=== PATIENT | female | born 1950 | race Two or more races ===

== ENCOUNTER 2016-07-01 12:29 | Inpatient (IN) | payer MEDICARE, OTHER ==
[~2016-07-01] VITALS: Ht 157.5 cm; Wt 136.5 kg
[2016-07-01] MEDS ORDERED: IV NORMAL SALINE 1000ML BAG 1,000 ML IV SCH ×2 (13:15→15:22)
[2016-07-01] MEDS ORDERED: ONDANSETRON PF 4 MG/2 ML VIAL. IV ONE (13:45)
[2016-07-01 13:50] LABS: BASO # 0.1 x10^3/uL (0.0-0.2); BASO % 1 % (0-3); EOS % 2 % (0-3); HEMOGLOBIN 11.3 g/dL (12.0-15.5); LYMPH # 1.6 x10^3/uL (1.0-4.8); LYMPH % 19 % (24-48); MEAN CORPUSCULAR HEMOGLOBIN 26 pg (25-35); MEAN CORPUSCULAR HGB CONC 31 g/dL (31-37); MEAN CORPUSCULAR VOLUME 84 fL (79-100); MONO % 6 % (0-9); NEUT % 72 % (31-73); PLATELET COUNT 218 x10^3/uL (140-400); RED BLOOD COUNT 4.42 x10^6/uL (3.50-5.40); RED CELL DISTRIBUTION WIDTH 21.7 % (11.5-14.5); WHITE BLOOD COUNT 8.7 x10^3/uL (4.0-11.0)
--- NOTE | 2016-07-01 13:58 | RAD ---
Indication shortness of breath. A single view of the chest was obtained. No prior imaging of the chest is available. There is generalized cardiomegaly. There is no gross congestive heart failure. A consolidated pneumonia is not seen. Significant pleural fluid is not present. There is no pneumothorax. The visualized bony structures appear grossly intact. IMPRESSION: Cardiomegaly. A focal or acute process in the chest is not seen
[2016-07-01 14:04] LABS: CALCIUM 9.4 mg/dL (8.5-10.1); CREATININE 0.8 mg/dL (0.6-1.0); POTASSIUM 4.4 mmol/L (3.5-5.1)
[2016-07-01] MEDS: FENTANYL PF 100 MCG/2 ML VIAL. IV PRN ×2 (14:06→16:29)
[2016-07-01 14:09] LABS: BILIRUBIN,URINE NEGATIVE (NEG); GLUCOSE,URINE 250 mg/dL (NEG); NITRITE,URINE NEGATIVE (NEG); PH,URINE 6.5; PROTEIN,URINE NEGATIVE (NEG-TRACE); UROBILINOGEN,URINE 0.2 mg/dL (0.2 mg/dL)
[2016-07-01 14:10] LABS: ALBUMIN 3.5 g/dL (3.4-5.0); TOTAL BILIRUBIN 0.3 mg/dL (0.2-1.0); TOTAL PROTEIN 6.9 g/dL (6.4-8.2)
--- NOTE | 2016-07-01 14:17 | PHYS DOC ---
Past Medical History Past Medical History: Diabetes-Type II, Hypertension, Other Additional Past Medical Histor: "rapid heartrate" Past Surgical History: Cholecystectomy, , Other Additional Past Surgical Histo: R hand frx repair Alcohol Use: Rarely Drug Use: None Adult General Chief Complaint Chief Complaint: BACK PAIN OR INJURY HPI HPI Patient is a 66 year old female who presents with complaint of back pain for one week. Patient states that she is I'm pain along the left side of her back which radiates into her left flank. The patient denies any injury. Patient was noted at triage to have significant hypoxia with minimal exertion, reporting an oxygen saturation in the mid to low 80s. The patient does admit to shortness of breath and swelling in her lower extremities. Patient rates pain currently as an 8 out of 10. Patient has not taken any medications to help with symptoms. Patient has history of hypertension and type 2 diabetes mellitus. Patient has not had any associated fevers, productive cough, or chest pain with her symptoms. Review of Systems Review of Systems Constitutional: Denies fever or chills [] Eyes: Denies change in visual acuity, redness, or eye pain [] HENT: Denies nasal congestion or sore throat [] Respiratory: Dyspnea on exertion [] Cardiovascular: Edema, denies chest pain [] GI: Denies abdominal pain, nausea, vomiting, bloody stools or diarrhea [] : Denies dysuria or hematuria [] Musculoskeletal: Back pain [] Integument: Denies rash or skin lesions [] Neurologic: Denies headache, focal weakness or sensory changes [] Current Medications Current Medications Current Medications Medications (Trade) Dose Ordered Sig/[place]elaide Start Time Stop Time Status Last Admin Dose Admin Fentanyl Citrate (Fentanyl 2ml Vial) 50 mcg PRN Q15MIN PRN 07/01/16 13:30 07/02/16 13:29 07/01/16 14:06 50 MCG Ondansetron HCl (Zofran) 4 mg 1X ONCE 07/01/16 13:45 07/01/16 13:46 DC 07/01/16 14:05 4 MG Sodium Chloride (Iv Sodium Chloride 0.9% 1000ml Bag) 1,000 ml @ 1,000 mls/hr Q1H 07/01/16 13:15 07/01/16 14:14 DC 07/01/16 13:27 1,000 MLS/HR Allergies Allergies Allergies Coded Allergies Type Severity Reaction Last Updated Verified No Known Drug Allergies 07/01/16 No Physical Exam Physical Exam Constitutional: Alert, obese, afebrile, appears in mild discomfort. [] HENT: Normocephalic, atraumatic, bilateral external ears normal, oropharynx moist, no oral exudates, nose normal. [] Eyes: PERRLA, EOMI, conjunctiva normal, no discharge. [] Neck: Normal range of motion, no tenderness, supple, no stridor. [] Cardiovascular:Heart rate regular rhythm, no murmur [] Lungs & Thorax: Mild to moderate restriction of air movement bilaterally, no wheezes, no rales [] Abdomen: Bowel sounds normal, soft, no tenderness, no masses, no pulsatile masses. [] Skin: Warm, dry, no erythema, no rash. [] Back: No tenderness, no CVA tenderness. [] Extremities: No tenderness, no cyanosis, no clubbing, ROM intact, 2+ pitting edema in the bilateral lower extremities. [] Neurologic: Alert and oriented X 3, normal motor function, normal sensory function, no focal deficits noted. [] Current Patient Data Vital Signs Vital Signs Date Time Temp Pulse Resp B/P Pulse Ox O2 Delivery O2 Flow Rate FiO2 07/01/16 14:06 24 98 Room Air 07/01/16 12:36 97.7 73 176/56 97.7 Lab Values Laboratory Tests Test 07/01/16 12:55 07/01/16 13:33 Urine Color Yellow Urine Clarity Clear Urine pH 6.5 Urine Specific [place] 1.010 Urine Protein Negativemg/dL (NEG-TRACE) Urine Glucose (UA) 250mg/dL (NEG) Urine Ketones (Stick) Negativemg/dL (NEG) Urine Blood Negative (NEG) Urine Nitrite Negative (NEG) Urine Bilirubin Negative (NEG) Urine Urobilinogen Dipstick 0.2mg/dL (0.2 mg/dL) Urine Leukocyte Esterase Negative (NEG) Urine RBC 0/HPF (0-2) Urine WBC Occ/HPF (0-4) Urine Squamous Epithelial Cells Occ/LPF Urine Bacteria 0/HPF (0-FEW) White Blood Count 8.7x10^3/uL (4.0-11.0) Red Blood Count 4.42x10^6/uL (3.50-5.40) Hemoglobin 11.3g/dL (12.0-15.5) L Hematocrit 37.0% (36.0-47.0) Mean Corpuscular Volume 84fL (79-100) Mean Corpuscular Hemoglobin 26pg (25-35) Mean Corpuscular Hemoglobin Concent 31g/dL (31-37) Red Cell Distribution Width 21.7% (11.5-14.5) H Platelet Count 218x10^3/uL (140-400) Neutrophils (%) (Auto) 72% (31-73) Lymphocytes (%) (Auto) 19% (24-48) L Monocytes (%) (Auto) 6% (0-9) Eosinophils (%) (Auto) 2% (0-3) Basophils (%) (Auto) 1% (0-3) Neutrophils # (Auto) 6.3x10^3uL (1.8-7.7) Lymphocytes # (Auto) 1.6x10^3/uL (1.0-4.8) Monocytes # (Auto) 0.5x10^3/uL (0.0-1.1) Eosinophils # (Auto) 0.2x10^3/uL (0.0-0.7) Basophils # (Auto) 0.1x10^3/uL (0.0-0.2) Sodium Level 145mmol/L (136-145) Potassium Level 4.4mmol/L (3.5-5.1) Chloride Level 104mmol/L (98-107) Carbon Dioxide Level 31mmol/L (21-32) Anion Gap 10 (6-14) Blood Urea Nitrogen 21mg/dL (7-20) H Creatinine 0.8mg/dL (0.6-1.0) Estimated GFR (Cockcroft-Gault) 72.0 BUN/Creatinine Ratio 26 (6-20) H Glucose Level 166mg/dL (70-99) H Lactic Acid Level 1.7mmol/L (0.4-2.0) Calcium Level 9.4mg/dL (8.5-10.1) Total Bilirubin 0.3mg/dL (0.2-1.0) Aspartate Amino Transferase (AST) 25U/L (15-37) Alanine Aminotransferase (ALT) 28U/L (14-59) Alkaline Phosphatase 102U/L (46-116) Creatine Kinase 104U/L (26-192) Creatine Kinase MB (Mass) 1.1ng/mL (0.0-3.6) Creatine Kinase MB Relative Index 1.1% (0-4) Troponin I Quantitative < 0.017ng/mL (0.000-0.055) IM-Lvc-G-Type Natriuretic Peptide 142pg/mL (0-124) H Total Protein 6.9g/dL (6.4-8.2) Albumin 3.5g/dL (3.4-5.0) Albumin/Globulin Ratio 1.0 (1.0-1.7) Influenza Type A Antigen Negative (NEGATIVE) Influenza Type B Antigen Negative (NEGATIVE) Laboratory Tests 07/01/16 13:33 Laboratory Tests 07/01/16 13:33 EKG EKG Interpreted by me: Heart rate 70, sinus rhythm, normal intervals, normal axis, no acute ST/T-wave abnormalities present [] Radiology/Procedures Radiology/Procedures [facility] [address], [place] [id number] IMAGING REPORT Signed PATIENT: CAYETANO MAN ACCOUNT: [id number] : 1950 LOCATION: ER AGE: 66 SEX: F EXAM STATUS: REG ER ORD. PHYSICIAN: REINIER FITZPATRICK MD REASON: shortness of breath PROCEDURE: PORTABLE CHEST 1V Indication shortness of breath. A single view of the chest was obtained. No prior imaging of the chest is available. There is generalized cardiomegaly. There is no gross congestive heart failure. A consolidated pneumonia is not seen. Significant pleural fluid is not present. There is no pneumothorax. The visualized bony structures appear grossly intact. IMPRESSION: Cardiomegaly. A focal or acute process in the chest is not seen DICTATED and SIGNED BY: CEDRIC FLOYD MD DATE: 07/01/16 1736 CC: REINIER FITZPATRICK MD; UNKNOWN PCP NAME ~ [] Course & Med Decision Making Course & Med Decision Making Pertinent Labs and Imaging studies reviewed. (See chart for details) Patient was continued on supplemental oxygen with stabilization of oxygen levels to 93-95%. Patient's x-ray did not reveal evidence of pneumonia and patient's cardiac enzymes were unremarkable. The patient's symptoms appear to be consistent with exacerbation of asthma and also partially due to body habitus. The patient will be treated with medications to help with her lower lumbar strain as well as medications for asthma exacerbation. Patient admitted to Dr. yT. A consult was placed to Dr. Chaudhry of pulmonology to follow patient in hospital. Dragon Disclaimer Dragon Disclaimer This electronic medical record was generated, in whole or in part, using a voice recognition dictation system. Departure Departure Impression: Primary Impression: Dyspnea on exertion Additional Impressions: Hypoxia Asthma exacerbation Type 2 diabetes mellitus Morbid obesity Disposition: ADMITTED INPATIENT Admitting Physician: Tye Ty Condition: STABLE Referrals: UNKNOWN PCP NAME (PCP) Problem Qualifiers Additional Impressions: Type 2 diabetes mellitus Diabetes mellitus complication status: without complication Diabetes mellitus fpc insulin use: unspecified fpc insulin use status Qualified Code: E11.9 - Type 2 diabetes mellitus without complications Morbid obesity Obesity type: unspecified obesity type Qualified Code: E66.01 - Morbid ( severe) obesity due to excess calories REINIER FITZPATRICK MD Jul 01, 2016 14:17
[2016-07-01 14:18] LABS: CKMB INDEX 1.1 % (0-4); CKMB MASS 1.1 ng/mL (0.0-3.6)
[2016-07-01 14:23] LABS: BACTERIA,URINE 0 /HPF (0-FEW); RBC,URINE 0 /HPF (0-2); SQUAMOUS EPITHELIAL CELL,UR OCC /LPF; WBC,URINE OCC /HPF (0-4)
[2016-07-01 14:25] LABS: OBC FLU VALID
--- NOTE | 2016-07-01 14:34 | EKG ---
[facility] [address] [place] [address] Test Date: 2016-07-01 Test Time: 13:05:49 Pat Name: CAYETANO MAN Department: Room: Gender: F Financial Director: : 1950 Requested By: REINIER FITZPATRICK Order Number: [id number] Reading MD: Dorota Fritz Measurements Intervals [place] Rate: 70 P: 0 AK: 152 QRS: 24 QRSD: 86 T: 9 QT: 410 QTc: 446 Interpretive Statements SINUS RHYTHM NORMAL ECG RI6.01 No previous ECG available for comparison Electronically Signed On 07-03-2016 18:57:12 CDT by Dorota Fritz
[2016-07-01] MEDS ORDERED: ACETAMINOPHEN 325 MG TABLET. PO PRN ×2 (15:30→20:30)
[2016-07-01] MEDS ORDERED: ONDANSETRON PF 4 MG/2 ML VIAL. IV PRN ×3 (15:30→20:30)
[2016-07-01] MEDS: methylPREDNISolone SOD SUCC PF 40 MG/ML VIAL. IV SCH (16:28)
[2016-07-01] MEDS ORDERED: CYCLOBENZAPRINE 10 MG TABLET. PO PRN ×2 (16:30→20:30)
[2016-07-01 17:00] VITALS: BP 148/77
[2016-07-01] MEDS ORDERED: METO100T2 PO (18:12)
[2016-07-01] MEDS ORDERED: NAPR500T3 PO (18:12)
[2016-07-01] MEDS ORDERED: LISI-334 PO (18:12)
[2016-07-01] MEDS ORDERED: METF10002 PO (18:12)
[2016-07-01] MEDS ORDERED: SIMV20TA3 PO (18:12)
[2016-07-01] MEDS ORDERED: GABA600T2 PO (18:12)
[2016-07-01] MEDS ORDERED: HYDR25TA9 PO (18:13)
[2016-07-01] MEDS ORDERED: ASPI81TA2 PO (18:13)
[2016-07-01 18:17] VITALS: BP 148/77
--- NOTE | 2016-07-01 18:27 | ACF ---
Admission Forms Criteria ASTHMA Clinical Indications for Admission to Inpatient Care (Place 'X' for any and all applicable criteria): Admission is indicated for ANY ONE of the following (1)(2)(3)(4)(5): [ ]I. Absent or markedly diminished breath sounds (silent chest) [ ]II. Oxygen saturation < 92% [ ]III. PaCO2 = / > 42 mm Hg (5.6 kPa) [ ]IV. Peak expiratory flow rate < 40% of predicted or personal best after treatment. [ ]V. Peak expiratory flow rate < 33% of predicted or personal before after treatment [ ]. Change in mental status [ ]VII. Ventilatory support required [ ]VIII. PaO2 < 60 mm Hg (8.0 kPa) [ ]IX. Cyanosis [ ]X. Cardiac dysrhythmia (e.g., bradycardia) [ ]XI. Hemodynamic instability [ ]XII. Radiographic evidence of complication requiring inpatient treatment (e.g., pneumonia, pneumothorax) [X]XIII. Inpatient admission required rather than observation care (also use Asthma: Observation Care guideline as appropriate) because of ANY ONE of the following: [ ]a) Respiratory finding that is severe or persistent (eg, dyspnea, tachypnea, accessory muscle use) [ ]b) Airflow measurements less than 60% of predicted or personal best that persist (e.g., over 24 hours) or worsen despite treatments [X]c) Supplemental oxygen or respiratory treatments for over 24 hours that are performable only in acute inpatient setting [X]d) Other condition, treatment or monitoring requiring inpatient admission. Extended stay beyond goal length of stay may be needed for (26)(27)(28): [ ]a) Severe respiratory failure (23) (29) (30) [ ]b) Secondary causes and complications (25) [ ]c) Status asthmaticus [ ]d) Chronic obstructive asthma [ ]e) Older patients (29) [ ]f) Slow resolution [ ]g) Clinically significant exacerbation of comorbidities (eg, elie. heart failure, atrial fibrillation) The original [employer] content created by [employer] has been revised. The portions of the content which have been revised are identified through the use of italic text or in bold, and [employer] has neither reviewed nor approved the modified material. All other unmodified content is copyright [employer] Please see references footnoted in the original [facility] edition 2016 Admission Criteria Met?: Yes NAVEEN GIANG Jul 01, 2016 18:27
[2016-07-01 19:05] VITALS: BP 146/69
[2016-07-01] MEDS: IPRATRPIUM/ALBUTEROL 0.5/2.5MG 3 ML NEBU. NEB SCH ×2 (20:00→20:30)
[2016-07-01] MEDS ORDERED: INSU100V13 SQ (20:05)
[2016-07-01] MEDS ORDERED: INSU100C4 SQ (20:05)
[2016-07-01] MEDS ORDERED: PROAIR HFA8.5 GM INH (20:06)
[2016-07-01] MEDS ORDERED: ALBUTEROL SULFATE 2.5 MG/3 ML NEBU. NEB PRN ×2 (20:15→20:45)
[2016-07-01] MEDS ORDERED: HYDROCODONE/APAP 5/325MG TABLET. PO PRN (20:15)
[2016-07-01] MEDS ORDERED: hydrALAZINE 20 MG/ML VIAL. IVP PRN (20:15)
[2016-07-01] MEDS ORDERED: MORPHINE SULFATE 2 MG/ML DISP.SYRIN. IV PRN (20:30)
[2016-07-01] MEDS ORDERED: DEXTROSE 50% 25 GM / 50ML DISP.SYRIN. IV PRN (20:30)
[2016-07-01] MEDS ORDERED: NON FORMULARY ITEM (Albuterol Sulfate (Proair Hfa Inhaler) 2 PUFF) INH PRN (20:30)
[2016-07-01] MEDS ORDERED: INSULIN DETEMIR 300 UNITS/3 ML INSULN.PEN. SQ SCH ×2 (21:00)
[2016-07-01] MEDS: SIMVASTATIN 20 MG TABLET PO SCH (21:25)
[2016-07-01] MEDS: LISINOPRIL 20 MG TABLET PO SCH (21:25)
[2016-07-01] MEDS: GABAPENTIN 300 MG CAPSULE. PO SCH (21:25)
[2016-07-01] MEDS: METOPROLOL TART IMMED RELEASE 50 MG TABLET. PO SCH (21:25)
--- NOTE | 2016-07-01 21:53 | HP ---
ADMIT DATE: 07/01/2016 CHIEF COMPLAINT: Left-sided back pain. HISTORY OF PRESENT ILLNESS: A 66-year-old female patient with history of several comorbid conditions such as obesity, type 2 diabetes mellitus and hypertension, presented to the ER with complaints for nearly 1 week to 10 days of history of left-sided flank pain, which radiates to the front. The patient complains it as a tightness. At the time of arrival to the ER, her pain is 8/10 which has been getting better with some pain medications. She is reported to do have some low saturations running in mid low 80s in the ER and also the patient complain some shortness of breath. She is morbidly obese. She usually walks with cane and as of the family member, she is having chronic lower extremity swelling. The patient denies any urinary tract infection or symptoms of UTI, no fever, no cough, no chest pain. PAST MEDICAL HISTORY: Type 2 diabetes mellitus and hypertension. PAST SURGICAL HISTORY: Cholecystectomy, , right hand fracture repair. PERSONAL HISTORY: No smoking, no alcohol, no drug abuse. FAMILY HISTORY: Family history of diabetes. REVIEW OF SYSTEMS: Please see my electronic H and P. PHYSICAL EXAMINATION: Please see my electronic H and P. LABORATORY DATA: CBC: WBC 8.7, hemoglobin at 11.3, MCV 84, platelets 218. Chemistry: Sodium 145, potassium 4.4, chloride is 31, gap is 10, BUN and creatinine ____, troponin is less than 0.01. Urine: Protein negative, blood negative, nitrites negative, leukocyte esterase negative. Serology: Influenza A and B negative. IMAGING STUDIES: Chest x-ray, cardiomegaly. ASSESSMENT AND PLAN: 1. Acute low back pain, possible muscle spasm. 2. Hypertension, not controlled. 3. Type 2 diabetes mellitus with mild hyperglycemia. 4. Lower extremity swelling, chronic. 5. Hypoxia. 6. Possible obesity hypoventilation. 7. Morbid obesity, BMI 54. PLAN: 1. The patient has been admitted for pain control and currently she is on fentanyl. I will change to morphine 2 mg every [address] Rosenthal. 3. hypoxia. I think it could be due to hypoventilation and intractable pain and chest x-ray did not show anything. I will ask Dr. Chaudhry to see her and evaluate her until then, we will treat her with periodic nebulizations and ER started on Solu-Medrol, continue until the patient seen by Pulmonology. 4. Blood pressure is not controlled. I will continue home medications with p.r.n. hydralazine. 5. Sliding scale insulin, also I will order hemoglobin A1c. 6. DVT prophylaxis. 7. Monitor electrolytes. 8. Plan explained to the patient's son at bedside. HUBERT KIDD MD DR: TAMMY/philip JOB#: [id number] / [id number] CHAR
[2016-07-01 23:06] VITALS: BP 122/57
[2016-07-02] MEDS: methylPREDNISolone SOD SUCC PF 40 MG/ML VIAL. IV SCH ×5 (00:46→23:52)
[2016-07-02 03:28] VITALS: BP 106/62
[2016-07-02 04:33] LABS: BASO % 0 % (0-3); EOS % 0 % (0-3); HEMATOCRIT 37.2 % (36.0-47.0); HEMOGLOBIN 11.1 g/dL (12.0-15.5); LYMPH # 0.6 x10^3/uL (1.0-4.8); LYMPH % 6 % (24-48); MEAN CORPUSCULAR HEMOGLOBIN 26 pg (25-35); MEAN CORPUSCULAR HGB CONC 30 g/dL (31-37); MEAN CORPUSCULAR VOLUME 86 fL (79-100); MONO % 1 % (0-9); NEUT % 93 % (31-73); PLATELET COUNT 185 x10^3/uL (140-400); RED BLOOD COUNT 4.31 x10^6/uL (3.50-5.40); RED CELL DISTRIBUTION WIDTH 21.9 % (11.5-14.5); WHITE BLOOD COUNT 9.4 x10^3/uL (4.0-11.0)
[2016-07-02 04:43] LABS: CALCIUM 8.7 mg/dL (8.5-10.1); CREATININE 0.9 mg/dL (0.6-1.0); GFR 62.8; POTASSIUM 5.6 mmol/L (3.5-5.1)
[2016-07-02 05:29] LABS: ANISOCYTOSIS MOD; HYPOCHROMIA SLIGHT; PLT ESTIMATE ADEQUATE (ADEQUATE)
[2016-07-02 07:00] VITALS: BP 109/44
[2016-07-02] MEDS: IPRATRPIUM/ALBUTEROL 0.5/2.5MG 3 ML NEBU. NEB SCH ×4 (07:24→20:06)
[2016-07-02] MEDS ORDERED: INSULIN ASPART 300 UNITS/3 ML INSULN.PEN SQ SCH ×2 (07:30→08:00)
--- NOTE | 2016-07-02 07:36 | PDOC1 ---
History and Physical Date of Admission Date of Admission 07/01/16 Current Problem List Problem List Problems Medical Problems: (1) Asthma exacerbation Status: Acute (2) Dyspnea Status: Acute (3) Dyspnea on exertion Status: Acute (4) Hypoxia Status: Acute (5) Hypoxia Status: Acute (6) Morbid obesity Status: Acute (7) Type 2 diabetes mellitus Status: Acute Current Medications Current Medications Current Medications Medications (Trade) Dose Ordered Sig/[place] Start Time Stop Time Status Last Admin Dose Admin Acetaminophen (Tylenol) 650 mg PRN Q6HRS PRN 07/01/16 20:30 Acetaminophen/ Hydrocodone Bitart (Lortab 5/325) 1 tab PRN Q6HRS PRN 07/01/16 20:15 Albuterol Sulfate (Ventolin Neb Soln) 2.5 mg PRN Q4HRS PRN 07/01/16 20:45 Albuterol/ Ipratropium (Duoneb) 3 ml RTQID 07/01/16 16:00 07/02/16 15:59 07/02/16 07:24 3 ML Aspirin (Children'S Aspirin) 81 mg DAILY 07/02/16 09:00 Cyclobenzaprine HCl (Flexeril) 10 mg PRN Q6HRS PRN 07/01/16 20:30 Dextrose (Dextrose 50%-Water Syringe) 12.5 gm PRN Q15MIN PRN 07/01/16 20:30 Fentanyl Citrate (Fentanyl 2ml Vial) 50 mcg PRN Q15MIN PRN 07/01/16 13:30 07/01/16 20:27 DC 07/01/16 16:29 50 MCG Gabapentin (Neurontin) 600 mg TID 07/01/16 21:00 07/01/16 21:25 600 MG Hydralazine HCl (Apresoline) 10 mg PRN Q4HRS PRN 07/01/16 20:15 Insulin Aspart (Novolog) 0-9 UNITS TIDWMEALS 07/02/16 08:00 Insulin Detemir (Levemir) 110 units QHS 07/01/16 21:00 07/01/16 21:30 110 UNITS Lisinopril (Prinivil) 20 mg BID 07/01/16 21:00 07/01/16 21:25 20 MG Metformin HCl (Glucophage) 1,000 mg BIDWMEALS 07/02/16 08:00 Methylprednisolone Sodium Succinate (Solu-Medrol 40mg Vial) 40 mg Q6HRS 07/01/16 15:33 07/02/16 06:00 40 MG Metoprolol Tartrate (Lopressor) 100 mg BID 07/01/16 21:00 07/01/16 21:25 100 MG Morphine Sulfate 2 mg PRN Q2HR PRN 07/01/16 20:30 Non-Formulary Medication 2 puff PRN Q4-6HRS PRN 07/01/16 20:30 07/01/16 20:33 DC Ondansetron HCl (Zofran) 4 mg PRN Q8HRS PRN 07/01/16 20:30 Ondansetron HCl 4 mg 4 mg PRN Q8HRS PRN 07/01/16 15:30 07/01/16 20:18 DC Simvastatin (Zocor) 20 mg QHS 07/01/16 21:00 07/01/16 21:25 20 MG Sodium Chloride (Iv Sodium Chloride 0.9% 1000ml Bag) 1,000 ml @ 100 mls/hr Q10H 07/01/16 15:22 07/01/16 20:33 DC 07/01/16 18:50 100 MLS/HR Allergies Allergies Allergies Coded Allergies Type Severity Reaction Last Updated Verified No Known Drug Allergies 07/01/16 No ROS Review of System CONSTITUTIONAL: No fever or chills EYES: No recent changes SKIN: No rash or itching CARDIOVASCULAR: No chest pain, syncope, palpitations, or edema RESPIRATORY: No SOB or cough GASTROINTESTINAL: abdominal pain NEUROLOGICAL: No headaches or weakness ENDOCRINE: No cold or heat intolerance GENITOURINARY: No urgency or frequency of urination MUSCULOSKELETAL: No back pain or joint pain LYMPHATICS: No enlarged lymph nodes PSYCHIATRIC: No anxiety or depression Physical Exam Physical Exam GEN.: No apparent distress. Alert and oriented. obese HEENT: Head is normocephalic, atraumatic NECK: Supple. LUNGS: Clear to auscultation. HEART: RRR, S1, S2 present. Peripheral pulses intact ABDOMEN: Soft, nontender. Positive bowel sounds. EXTREMITIES: edema NEUROLOGIC: Normal speech, normal tone PSYCHIATRIC: Normal affect, normal mood. SKIN: Vitals Vitals Vital Signs Date Time Temp Pulse Resp B/P Pulse Ox O2 Delivery O2 Flow Rate FiO2 07/02/16 07:26 98 Nasal Cannula 2.0 07/02/16 03:28 97.8 71 18 106/62 97.8 Labs Labs Laboratory Tests Test 07/01/16 12:55 07/01/16 13:33 07/01/16 17:34 07/01/16 20:56 Urine Color Yellow Urine Clarity Clear Urine pH 6.5 Urine Specific [place] 1.010 Urine Protein Negativemg/dL (NEG-TRACE) Urine Glucose (UA) 250mg/dL (NEG) Urine Ketones (Stick) Negativemg/dL (NEG) Urine Blood Negative (NEG) Urine Nitrite Negative (NEG) Urine Bilirubin Negative (NEG) Urine Urobilinogen Dipstick 0.2mg/dL (0.2 mg/dL) Urine Leukocyte Esterase Negative (NEG) Urine RBC 0/HPF (0-2) Urine WBC Occ/HPF (0-4) Urine Squamous Epithelial Cells Occ/LPF Urine Bacteria 0/HPF (0-FEW) White Blood Count 8.7x10^3/uL (4.0-11.0) Red Blood Count 4.42x10^6/uL (3.50-5.40) Hemoglobin 11.3g/dL (12.0-15.5) Hematocrit 37.0% (36.0-47.0) Mean Corpuscular Volume 84fL (79-100) Mean Corpuscular Hemoglobin 26pg (25-35) Mean Corpuscular Hemoglobin Concent 31g/dL (31-37) Red Cell Distribution Width 21.7% (11.5-14.5) Platelet Count 218x10^3/uL (140-400) Neutrophils (%) (Auto) 72% (31-73) Lymphocytes (%) (Auto) 19% (24-48) Monocytes (%) (Auto) 6% (0-9) Eosinophils (%) (Auto) 2% (0-3) Basophils (%) (Auto) 1% (0-3) Neutrophils # (Auto) 6.3x10^3uL (1.8-7.7) Lymphocytes # (Auto) 1.6x10^3/uL (1.0-4.8) Monocytes # (Auto) 0.5x10^3/uL (0.0-1.1) Eosinophils # (Auto) 0.2x10^3/uL (0.0-0.7) Basophils # (Auto) 0.1x10^3/uL (0.0-0.2) Sodium Level 145mmol/L (136-145) Potassium Level 4.4mmol/L (3.5-5.1) Chloride Level 104mmol/L (98-107) Carbon Dioxide Level 31mmol/L (21-32) Anion Gap 10 (6-14) Blood Urea Nitrogen 21mg/dL (7-20) Creatinine 0.8mg/dL (0.6-1.0) Estimated GFR (Cockcroft-Gault) 72.0 BUN/Creatinine Ratio 26 (6-20) Glucose Level 166mg/dL (70-99) Lactic Acid Level 1.7mmol/L (0.4-2.0) Calcium Level 9.4mg/dL (8.5-10.1) Total Bilirubin 0.3mg/dL (0.2-1.0) Aspartate Amino Transf (AST/SGOT) 25U/L (15-37) Alanine Aminotransferase (ALT/SGPT) 28U/L (14-59) Alkaline Phosphatase 102U/L (46-116) Creatine Kinase 104U/L (26-192) Creatine Kinase MB (Mass) 1.1ng/mL (0.0-3.6) Creatine Kinase MB Relative Index 1.1% (0-4) Troponin I Quantitative < 0.017ng/mL (0.000-0.055) GM-Xmi-H-Type Natriuretic Peptide 142pg/mL (0-124) Total Protein 6.9g/dL (6.4-8.2) Albumin 3.5g/dL (3.4-5.0) Albumin/Globulin Ratio 1.0 (1.0-1.7) Influenza Type A Antigen Negative (NEGATIVE) Influenza Type B Antigen Negative (NEGATIVE) Glucose (Fingerstick) 122mg/dL (70-99) 261mg/dL (70-99) Test 07/02/16 04:15 White Blood Count 9.4x10^3/uL (4.0-11.0) Red Blood Count 4.31x10^6/uL (3.50-5.40) Hemoglobin 11.1g/dL (12.0-15.5) Hematocrit 37.2% (36.0-47.0) Mean Corpuscular Volume 86fL (79-100) Mean Corpuscular Hemoglobin 26pg (25-35) Mean Corpuscular Hemoglobin Concent 30g/dL (31-37) Red Cell Distribution Width 21.9% (11.5-14.5) Platelet Count 185x10^3/uL (140-400) Neutrophils (%) (Auto) 93% (31-73) Lymphocytes (%) (Auto) 6% (24-48) Monocytes (%) (Auto) 1% (0-9) Eosinophils (%) (Auto) 0% (0-3) Basophils (%) (Auto) 0% (0-3) Neutrophils # (Auto) 8.8x10^3uL (1.8-7.7) Lymphocytes # (Auto) 0.6x10^3/uL (1.0-4.8) Monocytes # (Auto) 0.1x10^3/uL (0.0-1.1) Eosinophils # (Auto) 0.0x10^3/uL (0.0-0.7) Basophils # (Auto) 0.0x10^3/uL (0.0-0.2) Segmented Neutrophils % 94% (35-66) Band Neutrophils % 1% (0-9) Lymphocytes % 5% (24-48) Platelet Estimate Adequate (ADEQUATE) Hypochromasia Slight Anisocytosis Mod Sodium Level 140mmol/L (136-145) Potassium Level 5.6mmol/L (3.5-5.1) Chloride Level 102mmol/L (98-107) Carbon Dioxide Level 29mmol/L (21-32) Anion Gap 9 (6-14) Blood Urea Nitrogen 27mg/dL (7-20) Creatinine 0.9mg/dL (0.6-1.0) Estimated GFR (Cockcroft-Gault) 62.8 Glucose Level 293mg/dL (70-99) Calcium Level 8.7mg/dL (8.5-10.1) Laboratory Tests Test 07/01/16 12:55 07/01/16 13:33 07/01/16 17:34 07/01/16 20:56 Urine Color Yellow Urine Clarity Clear Urine pH 6.5 Urine Specific [place] 1.010 Urine Protein Negativemg/dL (NEG-TRACE) Urine Glucose (UA) 250mg/dL (NEG) Urine Ketones (Stick) Negativemg/dL (NEG) Urine Blood Negative (NEG) Urine Nitrite Negative (NEG) Urine Bilirubin Negative (NEG) Urine Urobilinogen Dipstick 0.2mg/dL (0.2 mg/dL) Urine Leukocyte Esterase Negative (NEG) Urine RBC 0/HPF (0-2) Urine WBC Occ/HPF (0-4) Urine Squamous Epithelial Cells Occ/LPF Urine Bacteria 0/HPF (0-FEW) White Blood Count 8.7x10^3/uL (4.0-11.0) Red Blood Count 4.42x10^6/uL (3.50-5.40) Hemoglobin 11.3g/dL (12.0-15.5) Hematocrit 37.0% (36.0-47.0) Mean Corpuscular Volume 84fL (79-100) Mean Corpuscular Hemoglobin 26pg (25-35) Mean Corpuscular Hemoglobin Concent 31g/dL (31-37) Red Cell Distribution Width 21.7% (11.5-14.5) Platelet Count 218x10^3/uL (140-400) Neutrophils (%) (Auto) 72% (31-73) Lymphocytes (%) (Auto) 19% (24-48) Monocytes (%) (Auto) 6% (0-9) Eosinophils (%) (Auto) 2% (0-3) Basophils (%) (Auto) 1% (0-3) Neutrophils # (Auto) 6.3x10^3uL (1.8-7.7) Lymphocytes # (Auto) 1.6x10^3/uL (1.0-4.8) Monocytes # (Auto) 0.5x10^3/uL (0.0-1.1) Eosinophils # (Auto) 0.2x10^3/uL (0.0-0.7) Basophils # (Auto) 0.1x10^3/uL (0.0-0.2) Sodium Level 145mmol/L (136-145) Potassium Level 4.4mmol/L (3.5-5.1) Chloride Level 104mmol/L (98-107) Carbon Dioxide Level 31mmol/L (21-32) Anion Gap 10 (6-14) Blood Urea Nitrogen 21mg/dL (7-20) Creatinine 0.8mg/dL (0.6-1.0) Estimated GFR (Cockcroft-Gault) 72.0 BUN/Creatinine Ratio 26 (6-20) Glucose Level 166mg/dL (70-99) Lactic Acid Level 1.7mmol/L (0.4-2.0) Calcium Level 9.4mg/dL (8.5-10.1) Total Bilirubin 0.3mg/dL (0.2-1.0) Aspartate Amino Transf (AST/SGOT) 25U/L (15-37) Alanine Aminotransferase (ALT/SGPT) 28U/L (14-59) Alkaline Phosphatase 102U/L (46-116) Creatine Kinase 104U/L (26-192) Creatine Kinase MB (Mass) 1.1ng/mL (0.0-3.6) Creatine Kinase MB Relative Index 1.1% (0-4) Troponin I Quantitative < 0.017ng/mL (0.000-0.055) KT-Zdj-X-Type Natriuretic Peptide 142pg/mL (0-124) Total Protein 6.9g/dL (6.4-8.2) Albumin 3.5g/dL (3.4-5.0) Albumin/Globulin Ratio 1.0 (1.0-1.7) Influenza Type A Antigen Negative (NEGATIVE) Influenza Type B Antigen Negative (NEGATIVE) Glucose (Fingerstick) 122mg/dL (70-99) 261mg/dL (70-99) Test 07/02/16 04:15 White Blood Count 9.4x10^3/uL (4.0-11.0) Red Blood Count 4.31x10^6/uL (3.50-5.40) Hemoglobin 11.1g/dL (12.0-15.5) Hematocrit 37.2% (36.0-47.0) Mean Corpuscular Volume 86fL (79-100) Mean Corpuscular Hemoglobin 26pg (25-35) Mean Corpuscular Hemoglobin Concent 30g/dL (31-37) Red Cell Distribution Width 21.9% (11.5-14.5) Platelet Count 185x10^3/uL (140-400) Neutrophils (%) (Auto) 93% (31-73) Lymphocytes (%) (Auto) 6% (24-48) Monocytes (%) (Auto) 1% (0-9) Eosinophils (%) (Auto) 0% (0-3) Basophils (%) (Auto) 0% (0-3) Neutrophils # (Auto) 8.8x10^3uL (1.8-7.7) Lymphocytes # (Auto) 0.6x10^3/uL (1.0-4.8) Monocytes # (Auto) 0.1x10^3/uL (0.0-1.1) Eosinophils # (Auto) 0.0x10^3/uL (0.0-0.7) Basophils # (Auto) 0.0x10^3/uL (0.0-0.2) Segmented Neutrophils % 94% (35-66) Band Neutrophils % 1% (0-9) Lymphocytes % 5% (24-48) Platelet Estimate Adequate (ADEQUATE) Hypochromasia Slight Anisocytosis Mod Sodium Level 140mmol/L (136-145) Potassium Level 5.6mmol/L (3.5-5.1) Chloride Level 102mmol/L (98-107) Carbon Dioxide Level 29mmol/L (21-32) Anion Gap 9 (6-14) Blood Urea Nitrogen 27mg/dL (7-20) Creatinine 0.9mg/dL (0.6-1.0) Estimated GFR (Cockcroft-Gault) 62.8 Glucose Level 293mg/dL (70-99) Calcium Level 8.7mg/dL (8.5-10.1) VTE Prophylaxis Ordered VTE Prophylaxis Devices: No VTE Pharmacological Prophylaxi: Yes HUBERT KIDD MD Jul 02, 2016 07:36
[2016-07-02] MEDS ORDERED: GABAPENTIN 300 MG CAPSULE. PO ONE (08:04)
[2016-07-02] MEDS: GABAPENTIN 300 MG CAPSULE. PO SCH ×3 (08:23→22:12)
[2016-07-02] MEDS: METOPROLOL TART IMMED RELEASE 50 MG TABLET. PO SCH ×2 (08:24→22:11)
[2016-07-02] MEDS: ASPIRIN CHEWABLE 81 MG TABLET. PO SCH (08:26)
[2016-07-02] MEDS: METFORMIN 1,000 MG TABLET PO SCH ×2 (08:26→17:02)
[2016-07-02] MEDS: LISINOPRIL 20 MG TABLET PO SCH ×2 (08:26→22:12)
[2016-07-02] MEDS: INSULIN ASPART 300 UNITS/3 ML INSULN.PEN SQ SCH ×5 (08:41→17:09)
[2016-07-02] MEDS ORDERED: ENOXAPARIN 40 MG/0.4 ML SYRINGE. SQ SCH (09:00)
[2016-07-02 11:00] VITALS: BP 141/68
--- NOTE | 2016-07-02 11:35 | PDOC ---
PROGRESS NOTES Chief Complaint Chief Complaint [error] LIN MYERS MD Jul 02, 2016 11:35
[2016-07-02] MEDS ORDERED: methylPREDNISolone ACETATE 40 MG/ML VIAL. INJ ONE (12:15)
[2016-07-02] MEDS ORDERED: BUPIVACAINE MPF 0.25% 10 ML VIAL. IJ ONE (12:15)
[2016-07-02] MEDS ORDERED: CYCLOBENZAPRINE 10 MG TABLET. PO PRN (13:30)
--- NOTE | 2016-07-02 13:44 | RAD ---
EXAM: Lumbar spine MRI without contrast. HISTORY: Chronic lower back pain and left lower extremity radiculopathy. TECHNIQUE: Multiplanar and multisequence magnetic resonance imaging of the lumbar spine was performed without contrast. COMPARISON: None. FINDINGS: There is minimal grade 1 anterolisthesis of L4 on L5. There is a mild chronic wedge compression fracture of T11. There is minimal anterior wedging of T12, possibly developmental. The lumbar vertebral bodies are normal in height. There is a hemangioma within L1. There is diffuse disc desiccation. The conus terminates at L1. There is a defect within the right iliac bone likely due to a bone graft harvest site. At L1-L2, there is a disc bulge and anterior and phlegmon. There is mild facet arthropathy. There is no stenosis. At L2-L3, there is a left foraminal disc protrusion superimposed on a disc bulge and endplate remodeling. There is minimal central canal stenosis. At L3-L4, there is a left foraminal to extraforaminal disc protrusion superimposed on a disc bulge and endplate remodeling. There is mild left greater than right facet arthropathy. There is mild left foraminal stenosis. There is minimal central canal stenosis. At L4-L5, there is a disc bulge and endplate remodeling. There is moderate facet arthropathy. There is hypertrophy of the ligament of flavum. There is a suspected 6 mm right facet joint synovial cyst present adjacent to the right lateral central canal. There is minimal bilateral foraminal stenosis. There is effacement of the right lateral recess and deviation of the traversing right nerve roots and mild central canal stenosis. At L5-S1, there is a right paracentral to lateral recess disc protrusion with slight inferior extrusion extending 9 mm inferior to the disc space. There is also a left foraminal to lateral disc protrusion. These are superimposed on a disc bulge and endplate remodeling. There is mild to moderate facet arthropathy. There is moderate left foraminal stenosis with effacement of the exiting left L5 nerve root. There is mild central canal stenosis with effacement of the right lateral recess and deviation of the traversing right S1 nerve root. IMPRESSION: 1. Multilevel degenerative changes of the lumbar spine, described in detail above. This results in minimal central canal stenosis L2-L3, mild left foraminal and minimal central canal stenosis at L3-L4, minimal bilateral foraminal stenosis and effacement of the right lateral recess and mild central canal stenosis at L4-L5, and moderate left foraminal stenosis and mild central canal stenosis with effacement of the right lateral recess at L5-S1. 2. Minimal grade 1 anterolisthesis of L4 on L5.. 3. Mild chronic anterior wedge deformity of T11 and minimal anterior wedging of T12, the latter of which may be developmental. There is no acute osseous finding.
[2016-07-02 15:00] VITALS: BP 131/69
[2016-07-02] MEDS: LIDOCAINE (700MG/PATCH) PATCH. TD SCH (15:05)
--- NOTE | 2016-07-02 18:37 | PDOC ---
PULMONARY PROGRESS NOTES Vitals Vital Signs Date Time Temp Pulse Resp B/P Pulse Ox O2 Delivery O2 Flow Rate FiO2 07/02/16 16:22 93 Nasal Cannula 2.0 07/02/16 15:00 99.0 73 131/69 99.0 07/02/16 07:00 22 Labs Laboratory Tests Test 07/01/16 12:55 07/01/16 13:33 07/01/16 17:34 07/01/16 20:56 Urine Color Yellow Urine Clarity Clear Urine pH 6.5 Urine Specific [place] 1.010 Urine Protein Negativemg/dL (NEG-TRACE) Urine Glucose (UA) 250mg/dL (NEG) Urine Ketones (Stick) Negativemg/dL (NEG) Urine Blood Negative (NEG) Urine Nitrite Negative (NEG) Urine Bilirubin Negative (NEG) Urine Urobilinogen Dipstick 0.2mg/dL (0.2 mg/dL) Urine Leukocyte Esterase Negative (NEG) Urine RBC 0/HPF (0-2) Urine WBC Occ/HPF (0-4) Urine Squamous Epithelial Cells Occ/LPF Urine Bacteria 0/HPF (0-FEW) White Blood Count 8.7x10^3/uL (4.0-11.0) Red Blood Count 4.42x10^6/uL (3.50-5.40) Hemoglobin 11.3g/dL (12.0-15.5) Hematocrit 37.0% (36.0-47.0) Mean Corpuscular Volume 84fL (79-100) Mean Corpuscular Hemoglobin 26pg (25-35) Mean Corpuscular Hemoglobin Concent 31g/dL (31-37) Red Cell Distribution Width 21.7% (11.5-14.5) Platelet Count 218x10^3/uL (140-400) Neutrophils (%) (Auto) 72% (31-73) Lymphocytes (%) (Auto) 19% (24-48) Monocytes (%) (Auto) 6% (0-9) Eosinophils (%) (Auto) 2% (0-3) Basophils (%) (Auto) 1% (0-3) Neutrophils # (Auto) 6.3x10^3uL (1.8-7.7) Lymphocytes # (Auto) 1.6x10^3/uL (1.0-4.8) Monocytes # (Auto) 0.5x10^3/uL (0.0-1.1) Eosinophils # (Auto) 0.2x10^3/uL (0.0-0.7) Basophils # (Auto) 0.1x10^3/uL (0.0-0.2) Sodium Level 145mmol/L (136-145) Potassium Level 4.4mmol/L (3.5-5.1) Chloride Level 104mmol/L (98-107) Carbon Dioxide Level 31mmol/L (21-32) Anion Gap 10 (6-14) Blood Urea Nitrogen 21mg/dL (7-20) Creatinine 0.8mg/dL (0.6-1.0) Estimated GFR (Cockcroft-Gault) 72.0 BUN/Creatinine Ratio 26 (6-20) Glucose Level 166mg/dL (70-99) Lactic Acid Level 1.7mmol/L (0.4-2.0) Calcium Level 9.4mg/dL (8.5-10.1) Total Bilirubin 0.3mg/dL (0.2-1.0) Aspartate Amino Transf (AST/SGOT) 25U/L (15-37) Alanine Aminotransferase (ALT/SGPT) 28U/L (14-59) Alkaline Phosphatase 102U/L (46-116) Creatine Kinase 104U/L (26-192) Creatine Kinase MB (Mass) 1.1ng/mL (0.0-3.6) Creatine Kinase MB Relative Index 1.1% (0-4) Troponin I Quantitative < 0.017ng/mL (0.000-0.055) AI-Mkl-M-Type Natriuretic Peptide 142pg/mL (0-124) Total Protein 6.9g/dL (6.4-8.2) Albumin 3.5g/dL (3.4-5.0) Albumin/Globulin Ratio 1.0 (1.0-1.7) Influenza Type A Antigen Negative (NEGATIVE) Influenza Type B Antigen Negative (NEGATIVE) Glucose (Fingerstick) 122mg/dL (70-99) 261mg/dL (70-99) Test 07/02/16 04:15 07/02/16 07:01 07/02/16 10:54 07/02/16 16:32 White Blood Count 9.4x10^3/uL (4.0-11.0) Red Blood Count 4.31x10^6/uL (3.50-5.40) Hemoglobin 11.1g/dL (12.0-15.5) Hematocrit 37.2% (36.0-47.0) Mean Corpuscular Volume 86fL (79-100) Mean Corpuscular Hemoglobin 26pg (25-35) Mean Corpuscular Hemoglobin Concent 30g/dL (31-37) Red Cell Distribution Width 21.9% (11.5-14.5) Platelet Count 185x10^3/uL (140-400) Neutrophils (%) (Auto) 93% (31-73) Lymphocytes (%) (Auto) 6% (24-48) Monocytes (%) (Auto) 1% (0-9) Eosinophils (%) (Auto) 0% (0-3) Basophils (%) (Auto) 0% (0-3) Neutrophils # (Auto) 8.8x10^3uL (1.8-7.7) Lymphocytes # (Auto) 0.6x10^3/uL (1.0-4.8) Monocytes # (Auto) 0.1x10^3/uL (0.0-1.1) Eosinophils # (Auto) 0.0x10^3/uL (0.0-0.7) Basophils # (Auto) 0.0x10^3/uL (0.0-0.2) Segmented Neutrophils % 94% (35-66) Band Neutrophils % 1% (0-9) Lymphocytes % 5% (24-48) Platelet Estimate Adequate (ADEQUATE) Hypochromasia Slight Anisocytosis Mod Sodium Level 140mmol/L (136-145) Potassium Level 5.6mmol/L (3.5-5.1) Chloride Level 102mmol/L (98-107) Carbon Dioxide Level 29mmol/L (21-32) Anion Gap 9 (6-14) Blood Urea Nitrogen 27mg/dL (7-20) Creatinine 0.9mg/dL (0.6-1.0) Estimated GFR (Cockcroft-Gault) 62.8 Glucose Level 293mg/dL (70-99) Calcium Level 8.7mg/dL (8.5-10.1) Glucose (Fingerstick) 302mg/dL (70-99) 288mg/dL (70-99) 266mg/dL (70-99) Laboratory Tests Test 07/01/16 20:56 07/02/16 04:15 07/02/16 07:01 07/02/16 10:54 Glucose (Fingerstick) 261mg/dL (70-99) 302mg/dL (70-99) 288mg/dL (70-99) White Blood Count 9.4x10^3/uL (4.0-11.0) Red Blood Count 4.31x10^6/uL (3.50-5.40) Hemoglobin 11.1g/dL (12.0-15.5) Hematocrit 37.2% (36.0-47.0) Mean Corpuscular Volume 86fL (79-100) Mean Corpuscular Hemoglobin 26pg (25-35) Mean Corpuscular Hemoglobin Concent 30g/dL (31-37) Red Cell Distribution Width 21.9% (11.5-14.5) Platelet Count 185x10^3/uL (140-400) Neutrophils (%) (Auto) 93% (31-73) Lymphocytes (%) (Auto) 6% (24-48) Monocytes (%) (Auto) 1% (0-9) Eosinophils (%) (Auto) 0% (0-3) Basophils (%) (Auto) 0% (0-3) Neutrophils # (Auto) 8.8x10^3uL (1.8-7.7) Lymphocytes # (Auto) 0.6x10^3/uL (1.0-4.8) Monocytes # (Auto) 0.1x10^3/uL (0.0-1.1) Eosinophils # (Auto) 0.0x10^3/uL (0.0-0.7) Basophils # (Auto) 0.0x10^3/uL (0.0-0.2) Segmented Neutrophils % 94% (35-66) Band Neutrophils % 1% (0-9) Lymphocytes % 5% (24-48) Platelet Estimate Adequate (ADEQUATE) Hypochromasia Slight Anisocytosis Mod Sodium Level 140mmol/L (136-145) Potassium Level 5.6mmol/L (3.5-5.1) Chloride Level 102mmol/L (98-107) Carbon Dioxide Level 29mmol/L (21-32) Anion Gap 9 (6-14) Blood Urea Nitrogen 27mg/dL (7-20) Creatinine 0.9mg/dL (0.6-1.0) Estimated GFR (Cockcroft-Gault) 62.8 Glucose Level 293mg/dL (70-99) Calcium Level 8.7mg/dL (8.5-10.1) Test 07/02/16 16:32 Glucose (Fingerstick) 266mg/dL (70-99) Medications Active Scripts Medications Dose Route/Sig Days Date Category Proair Hfa Inhaler (Albuterol Sulfate) 8.5 Gm Hfa.aer.ad 2 Puff INH PRN Q4-6HRS PRN 07/01/16 Reported Levemir (Insulin Detemir) 100 Unit/1 Ml Vial 110 Unit SQ QHS 07/01/16 Reported Novolog (Insulin Aspart) 100 Unit/1 Ml Cartridge 50 Unit SQ TIDAC 07/01/16 Reported Aspirin 81 Mg Tab.chew 1 Tab PO DAILY 07/01/16 Reported Hydrochlorothiazide Tablet (Hydrochlorothiazide) 25 Mg Tablet 1 Tab PO DAILY 07/01/16 Reported Simvastatin 20 Mg Tablet 1 Tab PO QHS 07/01/16 Reported Lisinopril 20 Mg Tablet 1 Tab PO BID 07/01/16 Reported Naproxen 500 Mg Tablet 1 Tab PO BID 07/01/16 Reported Metoprolol Tartrate 100 Mg Tablet 1 Tab PO BID 07/01/16 Reported Metformin Hcl 1,000 Mg Tablet 1 Tab PO BID 07/01/16 Reported Gabapentin 600 Mg Tablet 600 Mg PO TID 07/01/16 Reported Impression . FULL NOTE DICTATED HYPOXEMIA SEC TO OBESITY, POOR EFFORT, COPD SUSPECT MILAGRO WILL NEED OUTPT SLEEP STUDY, PFT 6 MIN WALK PRIOR TO D/C JEFFY HUITRON MD Jul 02, 2016 18:36
[2016-07-02 19:59] VITALS: BP 129/59
--- NOTE | 2016-07-02 21:02 | PDOC ---
PROGRESS NOTES Chief Complaint Chief Complaint Acute LBP ASSESSMENT AND PLAN: 1. Acute low back pain: MS origin. opioid pain control for now, Physiatry consulted 2. LE edema: chronic 3. HTN: currently well controlled on home regimen. suspect previosuly high values due to pain 4. DM2: poorly controlled currently. apparent insulin ressitance with huge insulin doses. add ISS (free form) 5. Hypoxia: CXR "clear". Possible obesity hypoventilation. Dr Chaudhry consulted 6. Morbid obesity, BMI 54. 7. DVT prophylaxis. Vitals Vitals Vital Signs Date Time Temp Pulse Resp B/P Pulse Ox O2 Delivery O2 Flow Rate FiO2 07/02/16 20:08 94 Nasal Cannula 2.0 07/02/16 19:59 99.1 79 20 129/59 99.1 Labs LABS Laboratory Tests Test 07/02/16 04:15 07/02/16 07:01 07/02/16 10:54 07/02/16 16:32 White Blood Count 9.4x10^3/uL (4.0-11.0) Red Blood Count 4.31x10^6/uL (3.50-5.40) Hemoglobin 11.1g/dL (12.0-15.5) Hematocrit 37.2% (36.0-47.0) Mean Corpuscular Volume 86fL (79-100) Mean Corpuscular Hemoglobin 26pg (25-35) Mean Corpuscular Hemoglobin Concent 30g/dL (31-37) Red Cell Distribution Width 21.9% (11.5-14.5) Platelet Count 185x10^3/uL (140-400) Neutrophils (%) (Auto) 93% (31-73) Lymphocytes (%) (Auto) 6% (24-48) Monocytes (%) (Auto) 1% (0-9) Eosinophils (%) (Auto) 0% (0-3) Basophils (%) (Auto) 0% (0-3) Neutrophils # (Auto) 8.8x10^3uL (1.8-7.7) Lymphocytes # (Auto) 0.6x10^3/uL (1.0-4.8) Monocytes # (Auto) 0.1x10^3/uL (0.0-1.1) Eosinophils # (Auto) 0.0x10^3/uL (0.0-0.7) Basophils # (Auto) 0.0x10^3/uL (0.0-0.2) Segmented Neutrophils % 94% (35-66) Band Neutrophils % 1% (0-9) Lymphocytes % 5% (24-48) Platelet Estimate Adequate (ADEQUATE) Hypochromasia Slight Anisocytosis Mod Sodium Level 140mmol/L (136-145) Potassium Level 5.6mmol/L (3.5-5.1) Chloride Level 102mmol/L (98-107) Carbon Dioxide Level 29mmol/L (21-32) Anion Gap 9 (6-14) Blood Urea Nitrogen 27mg/dL (7-20) Creatinine 0.9mg/dL (0.6-1.0) Estimated GFR (Cockcroft-Gault) 62.8 Glucose Level 293mg/dL (70-99) Calcium Level 8.7mg/dL (8.5-10.1) Glucose (Fingerstick) 302mg/dL (70-99) 288mg/dL (70-99) 266mg/dL (70-99) Review of Systems Review of Systems pain much improved. LIN Sexton MD Jul 02, 2016 21:02
[2016-07-02] MEDS: SIMVASTATIN 20 MG TABLET PO SCH (22:12)
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
[2016-07-02] MEDS: INSULIN DETEMIR 300 UNITS/3 ML INSULN.PEN. SQ SCH (22:24)
[2016-07-02 23:59] VITALS: BP 112/55
--- NOTE | 2016-07-03 01:31 | CONS ---
DATE OF CONSULTATION: 07/02/2016 ATTENDING PHYSICIAN: Dr. Ty. REASON FOR CONSULTATION: The patient seen in pulmonary consultation at the request of Dr. Ty for hypoxemia. HISTORY OF PRESENT ILLNESS: The patient is a 66-year-old that presented with back pain, with a prior history of hypertension, diabetes, was evaluated and found to be hypoxic. The patient does not normally wear oxygen at home. She does not have a cough. She denies fever, chills or night sweats. She smoked for several years. She has never had a polysomnogram. PAST MEDICAL HISTORY: Remarkable for type 2 diabetes mellitus, hypertension, morbid obesity, body mass index of 55.1. PAST SURGICAL HISTORY: Status post cholecystectomy, , right hand fracture repair. SOCIAL HISTORY: She smoked for 12-13 years. FAMILY HISTORY: Remarkable for diabetes. REVIEW OF SYSTEMS: As indicated above, otherwise, a 10-point system was reviewed and negative. CURRENT MEDICATIONS: List was reviewed. Please see the MRAD. At home, the patient was utilizing albuterol on a p.r.n. basis. PHYSICAL EXAMINATION: GENERAL: Morbid obese individual in no respiratory distress. VITAL SIGNS: Stable. O2 saturation was greater than 92%, currently on 2 liters. HEENT: Eyes: The sclerae were nonicteric. NECK: Jugular venous distention was not elevated. No lymphadenopathy. CHEST: Full expansion. LUNGS: Adequate airway flow, no wheezes. CARDIOVASCULAR: Regular rate and rhythm with S1, S2, no S3. ABDOMEN: Soft, obese. EXTREMITIES: Edema, skin changes compatible with venous insufficiency. LABORATORY DATA: Reviewed. White count was normal. Hemoglobin and hematocrit were noted. Electrolytes were noted. BUN elevated, glucose level was elevated. Serology for influenza was negative. Chest x-ray was reviewed. There is cardiomegaly, no acute infiltrates. IMPRESSION: 1. Acute respiratory failure, suspect multifactorial secondary to shunting from obesity, poor inspiratory effort and chronic obstructive pulmonary disease. 2. Chronic obstructive pulmonary disease. We will obtain outpatient pulmonary function testing. 3. Suspect obstructive sleep apnea. 4. Diabetes. 5. Morbid obesity. 6. Back pain. PLAN: From a pulmonary standpoint of view, the patient will undergo outpatient polysomnogram, outpatient PFTs, will undergo a 6-minute walk prior to discharge. The patient was instructed on the importance of weight reduction program and exercise regimen. I do appreciate the privilege in sharing in the patient's care. JEFFY HUITRON MD DR: CHARMAINE/philip JOB#: [id number] / [id number]
[2016-07-03 03:59] VITALS: BP 114/56
[2016-07-03] MEDS: methylPREDNISolone SOD SUCC PF 40 MG/ML VIAL. IV SCH ×4 (06:27→23:26)
[2016-07-03 07:00] VITALS: BP 124/62
[2016-07-03] MEDS: IPRATRPIUM/ALBUTEROL 0.5/2.5MG 3 ML NEBU. NEB SCH ×4 (07:27→19:37)
[2016-07-03] MEDS: METFORMIN 1,000 MG TABLET PO SCH ×2 (07:57→16:43)
[2016-07-03] MEDS: INSULIN ASPART 300 UNITS/3 ML INSULN.PEN SQ SCH ×6 (08:06→16:48)
[2016-07-03] MEDS: ASPIRIN CHEWABLE 81 MG TABLET. PO SCH (09:20)
[2016-07-03] MEDS: GABAPENTIN 300 MG CAPSULE. PO SCH ×3 (09:20→20:48)
[2016-07-03] MEDS: METOPROLOL TART IMMED RELEASE 50 MG TABLET. PO SCH ×2 (09:21→20:49)
[2016-07-03] MEDS: LIDOCAINE (700MG/PATCH) PATCH. TD SCH (09:21)
[2016-07-03] MEDS: LISINOPRIL 20 MG TABLET PO SCH ×2 (09:25→20:48)
[2016-07-03 11:00] VITALS: BP 99/63
[2016-07-03 15:02] VITALS: BP 110/60
--- NOTE | 2016-07-03 18:07 | PDOC ---
PROGRESS NOTES Chief Complaint Chief Complaint Acute LBP ASSESSMENT AND PLAN: 1. Acute low back pain: MS origin. opioid pain control for now, Physiatry consulted; injection today 2. LE edema: chronic 3. HTN: currently well controlled on home regimen. suspect previously high values due to pain 4. DM2: poorly controlled currently. apparent insulin resistance with huge insulin doses. add ISS (free form) 5. Hypoxia: CXR "clear". Possible obesity hypoventilation. Dr Chaudhry consulted: appreciate input. pt drops to 82% on RA. 6 min walk in AM for documentation for home O2. O/P w/U for MIL[place] 6. Morbid obesity, BMI 54. 7. DVT prophylaxis. Vitals Vitals Vital Signs Date Time Temp Pulse Resp B/P Pulse Ox O2 Delivery O2 Flow Rate FiO2 07/03/16 15:34 94 Nasal Cannula 2.0 07/03/16 15:02 97.9 74 18 110/60 97.9 Labs LABS Laboratory Tests Test 07/02/16 21:33 07/03/16 07:53 07/03/16 10:50 07/03/16 16:06 Glucose (Fingerstick) 248mg/dL (70-99) 299mg/dL (70-99) 354mg/dL (70-99) 232mg/dL (70-99) Review of Systems Review of Systems pain improved. appetite (too) good. + SOB (baseline) LIN MYERS MD Jul 03, 2016 18:07
[2016-07-03 19:00] VITALS: BP 111/60
[2016-07-03] MEDS: SIMVASTATIN 20 MG TABLET PO SCH (20:48)
[2016-07-03] MEDS: INSULIN DETEMIR 300 UNITS/3 ML INSULN.PEN. SQ SCH (20:55)
[2016-07-03 23:00] VITALS: BP 129/57
[2016-07-04 03:00] VITALS: BP 113/54
[2016-07-04] MEDS: methylPREDNISolone SOD SUCC PF 40 MG/ML VIAL. IV SCH ×4 (05:55→23:50)
[2016-07-04] MEDS: IPRATRPIUM/ALBUTEROL 0.5/2.5MG 3 ML NEBU. NEB SCH ×4 (07:23→21:37)
[2016-07-04 07:30] VITALS: BP 124/50
[2016-07-04] MEDS: GABAPENTIN 300 MG CAPSULE. PO SCH ×3 (09:09→20:31)
[2016-07-04] MEDS: METFORMIN 1,000 MG TABLET PO SCH ×2 (09:10→17:00)
[2016-07-04] MEDS: METOPROLOL TART IMMED RELEASE 50 MG TABLET. PO SCH ×2 (09:10→20:33)
[2016-07-04] MEDS: ASPIRIN CHEWABLE 81 MG TABLET. PO SCH (09:10)
[2016-07-04] MEDS: LISINOPRIL 20 MG TABLET PO SCH ×2 (09:10→20:31)
[2016-07-04] MEDS: LIDOCAINE (700MG/PATCH) PATCH. TD SCH (09:14)
[2016-07-04] MEDS: INSULIN ASPART 300 UNITS/3 ML INSULN.PEN SQ SCH ×6 (09:22→17:08)
--- NOTE | 2016-07-04 09:41 | PDOC ---
PULMONARY PROGRESS NOTES Subjective pt not more soa Vitals Vital Signs Date Time Temp Pulse Resp B/P Pulse Ox O2 Delivery O2 Flow Rate FiO2 07/04/16 09:10 68 124/50 07/04/16 07:30 98.0 20 97 Nasal Cannula 2.0 98.0 General: Alert Lungs: Clear Cardiovascular: S1, S2 Abdomen: Soft Neuro Exam: Alert Extremities: Other (decrease edema) Skin: Warm Labs Laboratory Tests Test 07/02/16 10:54 07/02/16 16:32 07/02/16 21:33 07/03/16 07:53 Glucose (Fingerstick) 288mg/dL (70-99) 266mg/dL (70-99) 248mg/dL (70-99) 299mg/dL (70-99) Test 07/03/16 10:50 07/03/16 16:06 07/03/16 20:47 07/04/16 08:03 Glucose (Fingerstick) 354mg/dL (70-99) 232mg/dL (70-99) 220mg/dL (70-99) 267mg/dL (70-99) Laboratory Tests Test 07/03/16 10:50 07/03/16 16:06 07/03/16 20:47 07/04/16 08:03 Glucose (Fingerstick) 354mg/dL (70-99) 232mg/dL (70-99) 220mg/dL (70-99) 267mg/dL (70-99) Medications Active Scripts Medications Dose Route/Sig Days Date Category Proair Hfa Inhaler (Albuterol Sulfate) 8.5 Gm Hfa.aer.ad 2 Puff INH PRN Q4-6HRS PRN 07/01/16 Reported Levemir (Insulin Detemir) 100 Unit/1 Ml Vial 110 Unit SQ QHS 07/01/16 Reported Novolog (Insulin Aspart) 100 Unit/1 Ml Cartridge 50 Unit SQ TIDAC 07/01/16 Reported Aspirin 81 Mg Tab.chew 1 Tab PO DAILY 07/01/16 Reported Hydrochlorothiazide Tablet (Hydrochlorothiazide) 25 Mg Tablet 1 Tab PO DAILY 07/01/16 Reported Simvastatin 20 Mg Tablet 1 Tab PO QHS 07/01/16 Reported Lisinopril 20 Mg Tablet 1 Tab PO BID 07/01/16 Reported Naproxen 500 Mg Tablet 1 Tab PO BID 07/01/16 Reported Metoprolol Tartrate 100 Mg Tablet 1 Tab PO BID 07/01/16 Reported Metformin Hcl 1,000 Mg Tablet 1 Tab PO BID 07/01/16 Reported Gabapentin 600 Mg Tablet 600 Mg PO TID 07/01/16 Reported Impression . 1. Acute respiratory failure, suspect multifactorial secondary to shunting from obesity, poor inspiratory effort and chronic obstructive pulmonary disease. 2. Chronic obstructive pulmonary disease. We will obtain outpatient pulmonary function testing. 3. Suspect obstructive sleep apnea. 4. Diabetes. 5. Morbid obesity. 6. Back pain. Plan . PLAN: From a pulmonary standpoint of view, the patient will undergo outpatient polysomnogram, outpatient PFTs, will undergo a 6-minute walk prior to discharge. The patient was instructed on the importance of weight reduction program and exercise regimen. 6 min in am home in am JEFFY HUITRON MD Jul 04, 2016 09:41
--- NOTE | 2016-07-04 10:26 | PDOC ---
PROGRESS NOTES Subjective Subjective She admits continued low back pain but less. Objective Objective Vital Signs Date Time Temp Pulse Resp B/P Pulse Ox O2 Delivery O2 Flow Rate FiO2 07/04/16 09:10 68 124/50 07/04/16 07:30 98.0 20 97 Nasal Cannula 2.0 98.0 Intake and Output 07/04/16 06:59 Intake Total 2510 ml Balance 2510 ml Intake Oral 2510 ml Physical Exam Physical Exam She is alert,sitting up inbedside recliner and continues with painfully limited lumbar spine ROM and tederness to palpation over right sacroiliac joint.She had mri scan evidence of multilevel DDD and DJD with some degree of neural foraminal compromise. Assessment Assessment Problems Medical Problems: (1) Asthma exacerbation Status: Acute (2) Dyspnea Status: Acute (3) Dyspnea on exertion Status: Acute (4) Hypoxia Status: Acute (5) Hypoxia Status: Acute (6) Morbid obesity Status: Acute (7) Type 2 diabetes mellitus Status: Acute Plan Plan of Care To proceed with injecting painful right sacroiliac joint and to try her with lumbar corset. Comment Review of Relevant I have reviewed the following items arash (where applicable) has been applied. Labs Laboratory Tests Test 07/02/16 10:54 07/02/16 16:32 07/02/16 21:33 07/03/16 07:53 Glucose (Fingerstick) 288mg/dL (70-99) 266mg/dL (70-99) 248mg/dL (70-99) 299mg/dL (70-99) Test 07/03/16 10:50 07/03/16 16:06 07/03/16 20:47 07/04/16 08:03 Glucose (Fingerstick) 354mg/dL (70-99) 232mg/dL (70-99) 220mg/dL (70-99) 267mg/dL (70-99) Laboratory Tests Test 07/03/16 10:50 07/03/16 16:06 07/03/16 20:47 07/04/16 08:03 Glucose (Fingerstick) 354mg/dL (70-99) 232mg/dL (70-99) 220mg/dL (70-99) 267mg/dL (70-99) Microbiology 07/01/16 Blood Culture - Preliminary, Resulted NO GROWTH AFTER 2 DAYS Medications Current Medications Sodium Chloride (Iv Sodium Chloride 0.9% 1000ml Bag) 1,000 ml @ 1,000 mls/hr Q1H IV Last administered on 07/01/16 13:27; Start 07/01/16 at 13:15; Stop at 14:14; Status DC Fentanyl Citrate (Fentanyl 2ml Vial) 50 mcg PRN Q15MIN PRN IV PAIN GREATER THAN 3/10 Last administered on 07/01/16 16:29; Start 07/01/16 at 13:30; Stop at 20:27; Status DC Ondansetron HCl (Zofran) 4 mg 1X ONCE IV Last administered on 07/01/16 14:05 ; Start 07/01/16 at 13:45; Stop 07/01/16 at 13:46; Status DC Ondansetron HCl 4 mg 4 mg PRN Q8HRS PRN IV NAUSEA/VOMITING; Start 07/01/16 at 15:30; Stop 07/01/16 at 20:18; Status DC Sodium Chloride (Iv Sodium Chloride 0.9% 1000ml Bag) 1,000 ml @ 100 mls/hr Q10H IV Last administered on 07/01/16 18:50; Start 07/01/16 at 15:22; Stop at 20:33; Status DC Acetaminophen (Tylenol) 650 mg PRN Q4HRS PRN PO FEVER; Start 07/01/16 at 15:30 ; Stop 07/01/16 at 20:17; Status DC Albuterol/ Ipratropium (Duoneb) 3 ml RTQID NEB Last administered on 07/02/16 12 :10; Start 07/01/16 at 16:00; Stop 07/02/16 at 15:59; Status DC Methylprednisolone Sodium Succinate (Solu-Medrol 40mg Vial) 40 mg Q6HRS IV Last administered on 07/04/16 05:55; Start 07/01/16 at 15:33 Cyclobenzaprine HCl (Flexeril) 10 mg PRN Q6HRS PRN PO MUSCLE SPASMS; Start at 16:30; Stop 07/01/16 at 20:18; Status DC Insulin Aspart (Novolog) 50 units TIDAC SQ ; Start 07/02/16 at 07:30; Status Cancel Insulin Detemir (Levemir) 110 units QHS SQ ; Start 07/01/16 at 21:00; Status Cancel Acetaminophen (Tylenol) 650 mg PRN Q6HRS PRN PO MILD PAIN / TEMP Last administered on 07/03/16 03:35; Start 07/01/16 at 20:30 Acetaminophen/ Hydrocodone Bitart (Lortab 5/325) 1 tab PRN Q6HRS PRN PO MODERATE TO SEVERE PAIN; Start 07/01/16 at 20:15 Hydralazine HCl (Apresoline) 10 mg PRN Q4HRS PRN IVP ELEVATED BP, SEE COMMENTS ; Start 07/01/16 at 20:15 Ondansetron HCl (Zofran) 4 mg PRN Q8HRS PRN IV NAUSEA/VOMITING; Start 07/01/16 at 20:15; Stop 07/01/16 at 20:19; Status DC Albuterol Sulfate (Ventolin Neb Soln) 2.5 mg PRN Q4HRS PRN NEB SHORTNESS OF BREATH; Start 07/01/16 at 20:15; Status Cancel Cyclobenzaprine HCl (Flexeril) 10 mg PRN Q6HRS PRN PO MUSCLE SPASMS; Start at 20:30; Stop 07/02/16 at 13:23; Status DC Ondansetron HCl (Zofran) 4 mg PRN Q8HRS PRN IV NAUSEA/VOMITING; Start 07/01/16 at 20:30 Aspirin (Children'S Aspirin) 81 mg DAILY PO Last administered on 07/04/16 09:10 ; Start 07/02/16 at 09:00 Lisinopril (Prinivil) 20 mg BID PO Last administered on 07/04/16 09:10; Start 07/01/16 at 21:00 Metformin HCl (Glucophage) 1,000 mg BIDWMEALS PO Last administered on 07/04/16 09:10; Start 07/02/16 at 08:00 Simvastatin (Zocor) 20 mg QHS PO Last administered on 07/03/16 20:48; Start at 21:00 Non-Formulary Medication 2 puff PRN Q4-6HRS PRN INH SHORTNESS OF BREATH; Start 07/01/16 at 20:30; Stop 07/01/16 at 20:33; Status DC Gabapentin (Neurontin) 600 mg TID PO Last administered on 07/02/16 08:23; Start 07/01/16 at 21:00; Stop 07/02/16 at 13:21; Status DC Insulin Aspart (Novolog) 50 units TIDWMEALS SQ Last administered on 07/02/16 12 :20; Start 07/02/16 at 07:30; Stop 07/02/16 at 13:29; Status DC Insulin Detemir (Levemir) 110 units QHS SQ Last administered on 07/01/16 21:30 ; Start 07/01/16 at 21:00; Stop 07/02/16 at 13:29; Status DC Metoprolol Tartrate (Lopressor) 100 mg BID PO Last administered on 07/04/16 09: 10; Start 07/01/16 at 21:00 Insulin Aspart (Novolog) 0-9 UNITS TIDWMEALS SQ Last administered on 07/02/16 08:42; Start 07/02/16 at 08:00; Stop 07/02/16 at 10:16; Status DC Dextrose (Dextrose 50%-Water Syringe) 12.5 gm PRN Q15MIN PRN IV SEE COMMENTS; Start 07/01/16 at 20:30 Morphine Sulfate 2 mg PRN Q2HR PRN IV PAIN; Start 07/01/16 at 20:30 Albuterol Sulfate (Ventolin Neb Soln) 2.5 mg PRN Q4HRS PRN NEB SHORTNESS OF BREATH; Start 07/01/16 at 20:45 Enoxaparin Sodium (Lovenox 40mg Syringe) 40 mg DAILY SQ Last administered on 08:28; Start 07/02/16 at 09:00; Stop 07/02/16 at 16:52; Status DC Gabapentin (Neurontin) 300 mg STK-MED ONCE PO ; Start 07/02/16 at 08:04; Stop 07/02/16 at 08:05; Status DC Insulin Aspart (Novolog) 0-9 UNITS TIDWMEALS SQ Last administered on 07/04/16 09:22; Start 07/02/16 at 12:00 Methylprednisolone Acetate (Depo-Medrol 40mg Vial) 40 mg 1X ONCE INJ ; Start at 12:15; Stop 07/02/16 at 12:16; Status DC Bupivacaine HCl (Sensorcaine-Mpf 0.25%) 10 ml 1X ONCE IJ ; Start 07/02/16 at 12: 15; Stop 07/02/16 at 12:16; Status DC Lidocaine (Lidoderm) 1 patch DAILY TD Last administered on 07/04/16 09:14; Start 07/02/16 at 12:30 Albuterol/ Ipratropium (Duoneb) 3 ml RTQID NEB Last administered on 07/04/16 07 :23; Start 07/02/16 at 16:00 Gabapentin (Neurontin) 600 mg TID PO Last administered on 07/04/16 09:09; Start 07/02/16 at 14:00 Cyclobenzaprine HCl (Flexeril) 10 mg PRN Q6HRS PRN PO MUSCLE SPASMS; Start 07/02 at 13:30 Insulin Detemir (Levemir) 110 units QHS SQ Last administered on 07/03/16 20:55 ; Start 07/02/16 at 13:29 Insulin Aspart (Novolog) 50 units TIDWMEALS SQ Last administered on 07/04/16 09 :23; Start 07/02/16 at 13:29 Enoxaparin Sodium (Lovenox 60mg Syringe) 60 mg Q12HR SQ Last administered on 09:17; Start 07/02/16 at 21:00 Active Scripts Active Reported Proair Hfa Inhaler (Albuterol Sulfate) 8.5 Gm Hfa.aer.ad 2 Puff INH PRN Q4-6HRS PRN Levemir (Insulin Detemir) 100 Unit/1 Ml Vial 110 Unit SQ QHS Novolog (Insulin Aspart) 100 Unit/1 Ml Cartridge 50 Unit SQ TIDAC Aspirin 81 Mg Tab.chew 1 Tab PO DAILY Hydrochlorothiazide Tablet (Hydrochlorothiazide) 25 Mg Tablet 1 Tab PO DAILY Simvastatin 20 Mg Tablet 1 Tab PO QHS Lisinopril 20 Mg Tablet 1 Tab PO BID Naproxen 500 Mg Tablet 1 Tab PO BID Metoprolol Tartrate 100 Mg Tablet 1 Tab PO BID Metformin Hcl 1,000 Mg Tablet 1 Tab PO BID Gabapentin 600 Mg Tablet 600 Mg PO TID Vitals/I & O Vital Sign - Last 24 Hours 07/03/16 07/03/16 07/03/16 07/03/16 11:00 11:28 15:02 15:34 Temp 97.9 97.9 97.9 97.9 Pulse 73 74 Resp 18 B/P 99/63 110/60 Pulse Ox 96 94 94 94 O2 Delivery Nasal Cannula Nasal Cannula Nasal Cannula Nasal Cannula O2 Flow Rate 2.0 2.0 2.0 2.0 07/03/16 07/03/16 07/03/16 07/03/16 19:00 19:39 20:03 20:48 Temp 98.0 98.0 Pulse 77 77 Resp 20 B/P 111/60 111/60 Pulse Ox 93 94 O2 Delivery Room Air Nasal Cannula Nasal Cannula O2 Flow Rate 2.0 2.0 07/03/16 07/03/16 07/04/16 07/04/16 20:49 23:00 03:00 07:15 Temp 98.5 98.2 98.5 98.2 Pulse 77 68 66 Resp 20 B/P 111/60 129/57 113/54 Pulse Ox 95 98 O2 Delivery Nasal Cannula Nasal Cannula Nasal Cannula O2 Flow Rate 2.0 2.0 2.0 07/04/16 07/04/16 07/04/16 07/04/16 07:23 07:30 09:10 09:10 Temp 98.0 98.0 Pulse 68 68 68 Resp 20 B/P 124/50 124/50 124/50 Pulse Ox 94 97 O2 Delivery Nasal Cannula Nasal Cannula O2 Flow Rate 2.0 2.0 Intake and Output 07/03/16 07/03/16 07/04/16 14:59 22:59 06:59 Intake Total 490 ml 1870 ml 150 ml Balance 490 ml 1870 ml 150 ml RADHA SALTER MD Jul 04, 2016 10:26
[2016-07-04 10:29] VITALS: BP 115/58
[2016-07-04] MEDS ORDERED: BUPIVACAINE MPF 0.25% 10 ML VIAL. IJ ONE ×2 (10:30→11:15)
[2016-07-04] MEDS ORDERED: methylPREDNISolone ACETATE 40 MG/ML VIAL. IM ONE ×2 (10:30→11:15)
[2016-07-04] MEDS ORDERED: INSULIN ASPART 300 UNITS/3 ML INSULN.PEN SQ ONE (12:00)
--- NOTE | 2016-07-04 13:37 | PDOC ---
PROGRESS NOTES Chief Complaint Chief Complaint back pain 1. Acute low back pain: MS origin. opioid pain control for now, Physiatry plan injection today 2. LE edema: chronic, 3. HTN: currently well controlled 4. DM2: poorly controlled currently. insulin resistance 5. Hypoxia: obesity hypoventilation. Dr Chaudhry consulted: appreciate input. pt drops to 82% on RA. 6 min walk in AM for documentation for home O2. O/P w/U for [place] 6. Very Morbid obesity, BMI 54. History of Present Illness History of Present Illness 6 min walk with some distress weakness and back pain Vitals Vitals Vital Signs Date Time Temp Pulse Resp B/P Pulse Ox O2 Delivery O2 Flow Rate FiO2 07/04/16 11:17 93 Nasal Cannula 2.0 07/04/16 10:29 98.2 72 20 115/58 98.2 Physical Exam General: Alert, Oriented X3, No acute distress Heart: Normal S1 Lungs: Clear Abdomen: Normal bowel sounds, Soft Extremities: Other (2+ edema) Skin: No breakdown Labs LABS Laboratory Tests Test 07/03/16 16:06 07/03/16 20:47 07/04/16 08:03 Glucose (Fingerstick) 232mg/dL (70-99) 220mg/dL (70-99) 267mg/dL (70-99) Review of Systems Review of Systems weakness debility, short of breath, back pain, leg swelling Assessment and Plan Assessmemt and Plan Problems Medical Problems: (1) Asthma exacerbation Status: Acute (2) Dyspnea Status: Acute (3) Dyspnea on exertion Status: Acute (4) Hypoxia Status: Acute (5) Hypoxia Status: Acute (6) Morbid obesity Status: Acute (7) Type 2 diabetes mellitus Status: Acute Problems: Comment Review of Relevant I have reviewed the following items arash (where applicable) has been applied. Labs Laboratory Tests Test 07/02/16 16:32 07/02/16 21:33 07/03/16 07:53 07/03/16 10:50 Glucose (Fingerstick) 266mg/dL (70-99) 248mg/dL (70-99) 299mg/dL (70-99) 354mg/dL (70-99) Test 07/03/16 16:06 07/03/16 20:47 07/04/16 08:03 Glucose (Fingerstick) 232mg/dL (70-99) 220mg/dL (70-99) 267mg/dL (70-99) Laboratory Tests Test 07/03/16 16:06 07/03/16 20:47 07/04/16 08:03 Glucose (Fingerstick) 232mg/dL (70-99) 220mg/dL (70-99) 267mg/dL (70-99) Microbiology 07/01/16 Blood Culture - Preliminary, Resulted NO GROWTH AFTER 2 DAYS Medications Current Medications Sodium Chloride (Iv Sodium Chloride 0.9% 1000ml Bag) 1,000 ml @ 1,000 mls/hr Q1H IV Last administered on 07/01/16 13:27; Start 07/01/16 at 13:15; Stop at 14:14; Status DC Fentanyl Citrate (Fentanyl 2ml Vial) 50 mcg PRN Q15MIN PRN IV PAIN GREATER THAN 3/10 Last administered on 07/01/16 16:29; Start 07/01/16 at 13:30; Stop at 20:27; Status DC Ondansetron HCl (Zofran) 4 mg 1X ONCE IV Last administered on 07/01/16 14:05 ; Start 07/01/16 at 13:45; Stop 07/01/16 at 13:46; Status DC Ondansetron HCl 4 mg 4 mg PRN Q8HRS PRN IV NAUSEA/VOMITING; Start 07/01/16 at 15:30; Stop 07/01/16 at 20:18; Status DC Sodium Chloride (Iv Sodium Chloride 0.9% 1000ml Bag) 1,000 ml @ 100 mls/hr Q10H IV Last administered on 07/01/16 18:50; Start 07/01/16 at 15:22; Stop at 20:33; Status DC Acetaminophen (Tylenol) 650 mg PRN Q4HRS PRN PO FEVER; Start 07/01/16 at 15:30 ; Stop 07/01/16 at 20:17; Status DC Albuterol/ Ipratropium (Duoneb) 3 ml RTQID NEB Last administered on 07/02/16 12 :10; Start 07/01/16 at 16:00; Stop 07/02/16 at 15:59; Status DC Methylprednisolone Sodium Succinate (Solu-Medrol 40mg Vial) 40 mg Q6HRS IV Last administered on 07/04/16 11:59; Start 07/01/16 at 15:33 Cyclobenzaprine HCl (Flexeril) 10 mg PRN Q6HRS PRN PO MUSCLE SPASMS; Start at 16:30; Stop 07/01/16 at 20:18; Status DC Insulin Aspart (Novolog) 50 units TIDAC SQ ; Start 07/02/16 at 07:30; Status Cancel Insulin Detemir (Levemir) 110 units QHS SQ ; Start 07/01/16 at 21:00; Status Cancel Acetaminophen (Tylenol) 650 mg PRN Q6HRS PRN PO MILD PAIN / TEMP Last administered on 07/03/16 03:35; Start 07/01/16 at 20:30 Acetaminophen/ Hydrocodone Bitart (Lortab 5/325) 1 tab PRN Q6HRS PRN PO MODERATE TO SEVERE PAIN; Start 07/01/16 at 20:15 Hydralazine HCl (Apresoline) 10 mg PRN Q4HRS PRN IVP ELEVATED BP, SEE COMMENTS ; Start 07/01/16 at 20:15 Ondansetron HCl (Zofran) 4 mg PRN Q8HRS PRN IV NAUSEA/VOMITING; Start 07/01/16 at 20:15; Stop 07/01/16 at 20:19; Status DC Albuterol Sulfate (Ventolin Neb Soln) 2.5 mg PRN Q4HRS PRN NEB SHORTNESS OF BREATH; Start 07/01/16 at 20:15; Status Cancel Cyclobenzaprine HCl (Flexeril) 10 mg PRN Q6HRS PRN PO MUSCLE SPASMS; Start at 20:30; Stop 07/02/16 at 13:23; Status DC Ondansetron HCl (Zofran) 4 mg PRN Q8HRS PRN IV NAUSEA/VOMITING; Start 07/01/16 at 20:30 Aspirin (Children'S Aspirin) 81 mg DAILY PO Last administered on 07/04/16 09:10 ; Start 07/02/16 at 09:00 Lisinopril (Prinivil) 20 mg BID PO Last administered on 07/04/16 09:10; Start 07/01/16 at 21:00 Metformin HCl (Glucophage) 1,000 mg BIDWMEALS PO Last administered on 07/04/16 09:10; Start 07/02/16 at 08:00 Simvastatin (Zocor) 20 mg QHS PO Last administered on 07/03/16 20:48; Start at 21:00 Non-Formulary Medication 2 puff PRN Q4-6HRS PRN INH SHORTNESS OF BREATH; Start 07/01/16 at 20:30; Stop 07/01/16 at 20:33; Status DC Gabapentin (Neurontin) 600 mg TID PO Last administered on 07/02/16 08:23; Start 07/01/16 at 21:00; Stop 07/02/16 at 13:21; Status DC Insulin Aspart (Novolog) 50 units TIDWMEALS SQ Last administered on 07/02/16 12 :20; Start 07/02/16 at 07:30; Stop 07/02/16 at 13:29; Status DC Insulin Detemir (Levemir) 110 units QHS SQ Last administered on 07/01/16 21:30 ; Start 07/01/16 at 21:00; Stop 07/02/16 at 13:29; Status DC Metoprolol Tartrate (Lopressor) 100 mg BID PO Last administered on 07/04/16 09: 10; Start 07/01/16 at 21:00 Insulin Aspart (Novolog) 0-9 UNITS TIDWMEALS SQ Last administered on 07/02/16 08:42; Start 07/02/16 at 08:00; Stop 07/02/16 at 10:16; Status DC Dextrose (Dextrose 50%-Water Syringe) 12.5 gm PRN Q15MIN PRN IV SEE COMMENTS; Start 07/01/16 at 20:30 Morphine Sulfate 2 mg PRN Q2HR PRN IV PAIN; Start 07/01/16 at 20:30 Albuterol Sulfate (Ventolin Neb Soln) 2.5 mg PRN Q4HRS PRN NEB SHORTNESS OF BREATH; Start 07/01/16 at 20:45 Enoxaparin Sodium (Lovenox 40mg Syringe) 40 mg DAILY SQ Last administered on 08:28; Start 07/02/16 at 09:00; Stop 07/02/16 at 16:52; Status DC Gabapentin (Neurontin) 300 mg STK-MED ONCE PO ; Start 07/02/16 at 08:04; Stop 07/02/16 at 08:05; Status DC Insulin Aspart (Novolog) 0-9 UNITS TIDWMEALS SQ Last administered on 07/04/16 09:22; Start 07/02/16 at 12:00 Methylprednisolone Acetate (Depo-Medrol 40mg Vial) 40 mg 1X ONCE INJ ; Start at 12:15; Stop 07/02/16 at 12:16; Status DC Bupivacaine HCl (Sensorcaine-Mpf 0.25%) 10 ml 1X ONCE IJ ; Start 07/02/16 at 12: 15; Stop 07/02/16 at 12:16; Status DC Lidocaine (Lidoderm) 1 patch DAILY TD Last administered on 07/04/16 09:14; Start 07/02/16 at 12:30 Albuterol/ Ipratropium (Duoneb) 3 ml RTQID NEB Last administered on 07/04/16 11 :17; Start 07/02/16 at 16:00 Gabapentin (Neurontin) 600 mg TID PO Last administered on 07/04/16 09:09; Start 07/02/16 at 14:00 Cyclobenzaprine HCl (Flexeril) 10 mg PRN Q6HRS PRN PO MUSCLE SPASMS; Start 07/02 at 13:30 Insulin Detemir (Levemir) 110 units QHS SQ Last administered on 07/03/16 20:55 ; Start 07/02/16 at 13:29 Insulin Aspart (Novolog) 50 units TIDWMEALS SQ Last administered on 07/04/16 12 :00; Start 07/02/16 at 13:29 Enoxaparin Sodium (Lovenox 60mg Syringe) 60 mg Q12HR SQ Last administered on 09:17; Start 07/02/16 at 21:00 Methylprednisolone Acetate (Depo-Medrol 40mg Vial) 40 mg 1X ONCE IM ; Start 07/04/16 at 11:15; Stop 07/04/16 at 11:16; Status DC Bupivacaine HCl (Sensorcaine-Mpf 0.25%) 10 ml 1X ONCE IJ ; Start 07/04/16 at 11: 15; Stop 07/04/16 at 11:16; Status DC Methylprednisolone Acetate (Depo-Medrol 40mg Vial) 40 mg 1X ONCE IM ; Start 07/04/16 at 10:30; Stop 07/04/16 at 10:33; Status DC Bupivacaine HCl (Sensorcaine-Mpf 0.25%) 10 ml 1X ONCE IJ ; Start 07/04/16 at 10: 30; Stop 07/04/16 at 10:33; Status DC Insulin Aspart (Novolog) 15 units 1X ONCE SQ Last administered on 07/04/16t 12: 01; Start 07/04/16 at 12:00; Stop 07/04/16 at 12:01; Status DC Active Scripts Active Reported Proair Hfa Inhaler (Albuterol Sulfate) 8.5 Gm Hfa.aer.ad 2 Puff INH PRN Q4-6HRS PRN Levemir (Insulin Detemir) 100 Unit/1 Ml Vial 110 Unit SQ QHS Novolog (Insulin Aspart) 100 Unit/1 Ml Cartridge 50 Unit SQ TIDAC Aspirin 81 Mg Tab.chew 1 Tab PO DAILY Hydrochlorothiazide Tablet (Hydrochlorothiazide) 25 Mg Tablet 1 Tab PO DAILY Simvastatin 20 Mg Tablet 1 Tab PO QHS Lisinopril 20 Mg Tablet 1 Tab PO BID Naproxen 500 Mg Tablet 1 Tab PO BID Metoprolol Tartrate 100 Mg Tablet 1 Tab PO BID Metformin Hcl 1,000 Mg Tablet 1 Tab PO BID Gabapentin 600 Mg Tablet 600 Mg PO TID Vitals/I & O Vital Sign - Last 24 Hours 07/03/16 07/03/16 07/03/16 07/03/16 15:02 15:34 19:00 19:39 Temp 97.9 98.0 97.9 98.0 Pulse 74 77 Resp 18 20 B/P 110/60 111/60 Pulse Ox 94 94 93 94 O2 Delivery Nasal Cannula Nasal Cannula Room Air Nasal Cannula O2 Flow Rate 2.0 2.0 2.0 07/03/16 07/03/16 07/03/16 07/03/16 20:03 20:48 20:49 23:00 Temp 98.5 98.5 Pulse 77 77 68 Resp 20 B/P 111/60 111/60 129/57 Pulse Ox 95 O2 Delivery Nasal Cannula Nasal Cannula O2 Flow Rate 2.0 2.0 07/04/16 07/04/16 07/04/16 07/04/16 03:00 07:15 07:23 07:30 Temp 98.2 98.0 98.2 98.0 Pulse 66 68 Resp 20 20 B/P 113/54 124/50 Pulse Ox 98 94 97 O2 Delivery Nasal Cannula Nasal Cannula Nasal Cannula Nasal Cannula O2 Flow Rate 2.0 2.0 2.0 2.0 07/04/16 07/04/16 07/04/16 07/04/16 09:10 09:10 10:29 11:17 Temp 98.2 98.2 Pulse 68 68 72 Resp 20 B/P 124/50 124/50 115/58 Pulse Ox 96 93 O2 Delivery Nasal Cannula Nasal Cannula O2 Flow Rate 2.0 2.0 Intake and Output 07/03/16 07/03/16 07/04/16 14:59 22:59 06:59 Intake Total 490 ml 1870 ml 150 ml Balance 490 ml 1870 ml 150 ml KAY ECHAVARRIA MD Jul 04, 2016 13:37
[2016-07-04 15:46] VITALS: BP 134/62
--- NOTE | 2016-07-04 18:58 | PDOC4 ---
PROCEDURE Procedure At her request,I have injected painful left sacroiliac joint area with marcaine and depomedrol solution under aseptic skin technique and she tolerated the procedure satisfactorily without any side effects. RADHA SALTER MD Jul 04, 2016 18:58
[2016-07-04 19:00] VITALS: BP 123/65
[2016-07-04] MEDS: SIMVASTATIN 20 MG TABLET PO SCH (20:31)
[2016-07-04] MEDS: INSULIN DETEMIR 300 UNITS/3 ML INSULN.PEN. SQ SCH (20:45)
[2016-07-04 23:02] VITALS: BP 116/62
[2016-07-05 03:00] VITALS: BP 126/69
[2016-07-05] MEDS: methylPREDNISolone SOD SUCC PF 40 MG/ML VIAL. IV SCH ×2 (05:53→12:30)
[2016-07-05 07:00] VITALS: BP 137/65
[2016-07-05] MEDS: IPRATRPIUM/ALBUTEROL 0.5/2.5MG 3 ML NEBU. NEB SCH ×3 (07:09→15:13)
[2016-07-05] MEDS: LIDOCAINE (700MG/PATCH) PATCH. TD SCH (08:37)
[2016-07-05] MEDS: METOPROLOL TART IMMED RELEASE 50 MG TABLET. PO SCH (08:38)
[2016-07-05] MEDS: METFORMIN 1,000 MG TABLET PO SCH (08:38)
[2016-07-05] MEDS: ASPIRIN CHEWABLE 81 MG TABLET. PO SCH (08:39)
[2016-07-05] MEDS: GABAPENTIN 300 MG CAPSULE. PO SCH ×2 (08:39→16:06)
[2016-07-05] MEDS: LISINOPRIL 20 MG TABLET PO SCH (08:39)
--- NOTE | 2016-07-05 08:50 | PDOC ---
PULMONARY PROGRESS NOTES Subjective pt not more soa Vitals Vital Signs Date Time Temp Pulse Resp B/P Pulse Ox O2 Delivery O2 Flow Rate FiO2 07/05/16 08:08 97 Nasal Cannula 2.0 07/05/16 07:00 97.6 73 18 137/65 97.6 General: Alert, No acute distress Lungs: Clear Cardiovascular: S1, S2 Abdomen: Soft Neuro Exam: Alert Extremities: Other (decrease edema) Skin: Warm Labs Laboratory Tests Test 07/03/16 10:50 07/03/16 16:06 07/03/16 20:47 07/04/16 08:03 Glucose (Fingerstick) 354mg/dL (70-99) 232mg/dL (70-99) 220mg/dL (70-99) 267mg/dL (70-99) Test 07/04/16 11:00 07/04/16 16:25 07/04/16 20:36 07/05/16 07:50 Glucose (Fingerstick) 396mg/dL (70-99) 278mg/dL (70-99) 191mg/dL (70-99) 205mg/dL (70-99) Laboratory Tests Test 07/04/16 11:00 07/04/16 16:25 07/04/16 20:36 07/05/16 07:50 Glucose (Fingerstick) 396mg/dL (70-99) 278mg/dL (70-99) 191mg/dL (70-99) 205mg/dL (70-99) Medications Active Scripts Medications Dose Route/Sig Days Date Category Proair Hfa Inhaler (Albuterol Sulfate) 8.5 Gm Hfa.aer.ad 2 Puff INH PRN Q4-6HRS PRN 07/01/16 Reported Levemir (Insulin Detemir) 100 Unit/1 Ml Vial 110 Unit SQ QHS 07/01/16 Reported Novolog (Insulin Aspart) 100 Unit/1 Ml Cartridge 50 Unit SQ TIDAC 07/01/16 Reported Aspirin 81 Mg Tab.chew 1 Tab PO DAILY 07/01/16 Reported Hydrochlorothiazide Tablet (Hydrochlorothiazide) 25 Mg Tablet 1 Tab PO DAILY 07/01/16 Reported Simvastatin 20 Mg Tablet 1 Tab PO QHS 07/01/16 Reported Lisinopril 20 Mg Tablet 1 Tab PO BID 07/01/16 Reported Naproxen 500 Mg Tablet 1 Tab PO BID 07/01/16 Reported Metoprolol Tartrate 100 Mg Tablet 1 Tab PO BID 07/01/16 Reported Metformin Hcl 1,000 Mg Tablet 1 Tab PO BID 07/01/16 Reported Gabapentin 600 Mg Tablet 600 Mg PO TID 07/01/16 Reported Impression . 1. Acute respiratory failure, suspect multifactorial secondary to shunting from obesity, poor inspiratory effort. 2. Possible Chronic obstructive pulmonary disease. We will obtain outpatient pulmonary function testing. 3. Suspect obstructive sleep apnea. 4. Diabetes. 5. Morbid obesity. 6. Back pain. Plan . PLAN: From a pulmonary standpoint of view, the patient will undergo outpatient polysomnogram, outpatient PFTs, Based on 6-minute walk she needs 2 litres at rest and 5 litres with exercise The patient was instructed on the importance of weight reduction program and exercise regimen. Home today KAYLEE FLYNN MD Jul 05, 2016 08:50
[2016-07-05] MEDS: INSULIN ASPART 300 UNITS/3 ML INSULN.PEN SQ SCH ×4 (08:51→12:36)
[2016-07-05] MEDS ORDERED: CYCL10TA2 PO (09:27)
[2016-07-05] MEDS ORDERED: FURO-69 PO (09:27)
[2016-07-05] MEDS ORDERED: HYDR-2666 PO (09:27)
--- NOTE | 2016-07-05 09:35 | PDOC3 ---
Discharge Summary Visit Information Date of Admission: Jul 01, 2016 Date of Discharge: Jul 05, 2016 Admitting Diagnosis: short of breath Final Diagnosis 1. Acute respiratory failure, multifactorial w/ obesity, poor inspiratory effort. 2. Possible Chronic obstructive pulmonary disease. or asthma 3. Suspect obstructive sleep apnea. 4. DM 2, mod control 5. Morbid obesity. BMI 55 6. Back pain, DJD, spasm Problems Medical Problems: (1) Asthma exacerbation Status: Acute (2) Dyspnea Status: Acute (3) Dyspnea on exertion Status: Acute (4) Hypoxia Status: Acute (5) Hypoxia Status: Acute (6) Morbid obesity Status: Acute (7) Type 2 diabetes mellitus Status: Acute Brief Hospital Course Allergies Allergies Coded Allergies Type Severity Reaction Last Updated Verified No Known Drug Allergies 07/01/16 No Vital Signs Vital Signs Date Time Temp Pulse Resp B/P Pulse Ox O2 Delivery O2 Flow Rate FiO2 07/05/16 08:39 73 137/65 07/05/16 08:08 97 Nasal Cannula 2.0 07/05/16 07:00 97.6 18 97.6 Lab Results Laboratory Tests Test 07/03/16 10:50 07/03/16 16:06 07/03/16 20:47 07/04/16 08:03 Glucose (Fingerstick) 354mg/dL (70-99) 232mg/dL (70-99) 220mg/dL (70-99) 267mg/dL (70-99) Test 07/04/16 11:00 07/04/16 16:25 07/04/16 20:36 07/05/16 07:50 Glucose (Fingerstick) 396mg/dL (70-99) 278mg/dL (70-99) 191mg/dL (70-99) 205mg/dL (70-99) Laboratory Tests Test 07/04/16 11:00 07/04/16 16:25 07/04/16 20:36 07/05/16 07:50 Glucose (Fingerstick) 396mg/dL (70-99) 278mg/dL (70-99) 191mg/dL (70-99) 205mg/dL (70-99) Brief Hospital Course Ms. Peters is a 66 old admitted through the Emergency Room with complaint of left-sided flank pain with radiation to her left groin Was also noted to be hypoxic. Pulm eval, 02 unable to wean, will DC on 2 liters at rest, 5 liters with exertion pulm toilet, exercise pain steroids and pain meds and lidoderm and infection for back pain she lives with her son who assists with care Discharge Information Condition at Discharge: Improved Follow Up: Weeks Disposition/Orders: D/C to Home w/ HH Scheduled Aspirin (Aspirin) 1 TAB PO DAILY (Reported) Gabapentin (Gabapentin) 600 MG PO TID (Reported) Hydrochlorothiazide (Hydrochlorothiazide Tablet ) 1 TAB PO DAILY (Reported) Insulin Aspart (Novolog) 50 UNIT SQ TIDAC (Reported) Insulin Detemir (Levemir) 110 UNIT SQ QHS (Reported) Lisinopril (Lisinopril) 1 TAB PO BID (Reported) Metformin Hcl (Metformin Hcl) 1 TAB PO BID (Reported) Metoprolol Tartrate (Metoprolol Tartrate) 1 TAB PO BID (Reported) Naproxen (Naproxen) 1 TAB PO BID (Reported) Simvastatin (Simvastatin) 1 TAB PO QHS (Reported) Scheduled PRN Albuterol Sulfate (Proair Hfa Inhaler) 2 PUFF INH PRN Q4-6HRS PRN PRN SHORTNESS OF BREATH (Reported) Hydrocodone Bit/Acetaminophen (Hydrocodone-Apap 5-325 ) 1 TAB PO PRN Q6HRS PRN PRN MODERATE TO SEVERE PAIN Patient Instructions Patient Instructions MRI spine 1. Multilevel degenerative changes of the lumbar spine, described in detail above. This results in minimal central canal stenosis L2-L3, mild left foraminal and minimal central canal stenosis at L3-L4, minimal bilateral foraminal stenosis and effacement of the right lateral recess and mild central canal stenosis at L4-L5, and moderate left foraminal stenosis and mild central canal stenosis with effacement of the right lateral recess at L5-S1. 2. Minimal grade 1 anterolisthesis of L4 on L5.. 3. Mild chronic anterior wedge deformity of T11 and minimal anterior wedging of T12, the latter of which may be developmental. There is no acute osseous finding. time > 30 min KAY ECHAVARRIA MD Jul 05, 2016 09:35
[2016-07-05] MEDS ORDERED: FUROSEMIDE 20 MG TABLET PO ONE (10:00)
[2016-07-05 11:23] VITALS: BP 135/59
[2016-07-05 14:54] VITALS: BP 124/65
--- NOTE | 2016-07-05 18:31 | PDOC ---
PROGRESS NOTES Subjective Subjective She feels easing of her low back pain from injection. Objective Objective Vital Signs Date Time Temp Pulse Resp B/P Pulse Ox O2 Delivery O2 Flow Rate FiO2 07/05/16 15:14 Nasal Cannula 2.0 07/05/16 14:54 97.3 71 18 124/65 97 97.3 Intake and Output 07/05/16 07:00 Intake Total 855 ml Balance 855 ml Intake Oral 855 ml # Voids 4 Physical Exam Physical Exam She is moving better. Assessment Assessment Problems Medical Problems: (1) Asthma exacerbation Status: Acute (2) Dyspnea Status: Acute (3) Dyspnea on exertion Status: Acute (4) Hypoxia Status: Acute (5) Hypoxia Status: Acute (6) Morbid obesity Status: Acute (7) Type 2 diabetes mellitus Status: Acute Plan Plan of Care Agree with discharge plans. Comment Review of Relevant I have reviewed the following items arash (where applicable) has been applied. Labs Laboratory Tests Test 07/03/16 20:47 07/04/16 08:03 07/04/16 11:00 07/04/16 16:25 Glucose (Fingerstick) 220mg/dL (70-99) 267mg/dL (70-99) 396mg/dL (70-99) 278mg/dL (70-99) Test 07/04/16 20:36 07/05/16 07:50 07/05/16 11:50 Glucose (Fingerstick) 191mg/dL (70-99) 205mg/dL (70-99) 266mg/dL (70-99) Laboratory Tests Test 07/04/16 20:36 07/05/16 07:50 07/05/16 11:50 Glucose (Fingerstick) 191mg/dL (70-99) 205mg/dL (70-99) 266mg/dL (70-99) Microbiology 07/01/16 Blood Culture - Preliminary, Resulted NO GROWTH AFTER 4 DAYS Medications Current Medications Sodium Chloride (Iv Sodium Chloride 0.9% 1000ml Bag) 1,000 ml @ 1,000 mls/hr Q1H IV Last administered on 07/01/16t 13:27; Start 07/01/16 at 13:15; Stop at 14:14; Status DC Fentanyl Citrate (Fentanyl 2ml Vial) 50 mcg PRN Q15MIN PRN IV PAIN GREATER THAN 3/10 Last administered on 07/01/16 16:29; Start 07/01/16 at 13:30; Stop at 20:27; Status DC Ondansetron HCl (Zofran) 4 mg 1X ONCE IV Last administered on 07/01/16 14:05 ; Start 07/01/16 at 13:45; Stop 07/01/16 at 13:46; Status DC Ondansetron HCl 4 mg 4 mg PRN Q8HRS PRN IV NAUSEA/VOMITING; Start 07/01/16 at 15:30; Stop 07/01/16 at 20:18; Status DC Sodium Chloride (Iv Sodium Chloride 0.9% 1000ml Bag) 1,000 ml @ 100 mls/hr Q10H IV Last administered on 07/01/16 18:50; Start 07/01/16 at 15:22; Stop at 20:33; Status DC Acetaminophen (Tylenol) 650 mg PRN Q4HRS PRN PO FEVER; Start 07/01/16 at 15:30 ; Stop 07/01/16 at 20:17; Status DC Albuterol/ Ipratropium (Duoneb) 3 ml RTQID NEB Last administered on 07/02/16 12 :10; Start 07/01/16 at 16:00; Stop 07/02/16 at 15:59; Status DC Methylprednisolone Sodium Succinate (Solu-Medrol 40mg Vial) 40 mg Q6HRS IV Last administered on 07/05/16 12:30; Start 07/01/16 at 15:33; Stop 07/05/16 at 18 :07; Status DC Cyclobenzaprine HCl (Flexeril) 10 mg PRN Q6HRS PRN PO MUSCLE SPASMS; Start at 16:30; Stop 07/01/16 at 20:18; Status DC Insulin Aspart (Novolog) 50 units TIDAC SQ ; Start 07/02/16 at 07:30; Status Cancel Insulin Detemir (Levemir) 110 units QHS SQ ; Start 07/01/16 at 21:00; Status Cancel Acetaminophen (Tylenol) 650 mg PRN Q6HRS PRN PO MILD PAIN / TEMP Last administered on 07/03/16 03:35; Start 07/01/16 at 20:30; Stop 07/05/16 at 18:07; Status DC Acetaminophen/ Hydrocodone Bitart (Lortab 5/325) 1 tab PRN Q6HRS PRN PO MODERATE TO SEVERE PAIN; Start 07/01/16 at 20:15; Stop 07/05/16 at 18:07; Status DC Hydralazine HCl (Apresoline) 10 mg PRN Q4HRS PRN IVP ELEVATED BP, SEE COMMENTS ; Start 07/01/16 at 20:15; Stop 07/05/16 at 18:07; Status DC Ondansetron HCl (Zofran) 4 mg PRN Q8HRS PRN IV NAUSEA/VOMITING; Start 07/01/16 at 20:15; Stop 07/01/16 at 20:19; Status DC Albuterol Sulfate (Ventolin Neb Soln) 2.5 mg PRN Q4HRS PRN NEB SHORTNESS OF BREATH; Start 07/01/16 at 20:15; Status Cancel Cyclobenzaprine HCl (Flexeril) 10 mg PRN Q6HRS PRN PO MUSCLE SPASMS; Start at 20:30; Stop 07/02/16 at 13:23; Status DC Ondansetron HCl (Zofran) 4 mg PRN Q8HRS PRN IV NAUSEA/VOMITING; Start 07/01/16 at 20:30; Stop 07/05/16 at 18:07; Status DC Aspirin (Children'S Aspirin) 81 mg DAILY PO Last administered on 07/05/16 08:39 ; Start 07/02/16 at 09:00; Stop 07/05/16 at 18:07; Status DC Lisinopril (Prinivil) 20 mg BID PO Last administered on 07/05/16 08:39; Start 07/01/16 at 21:00; Stop 07/05/16 at 18:07; Status DC Metformin HCl (Glucophage) 1,000 mg BIDWMEALS PO Last administered on 07/05/16 08:38; Start 07/02/16 at 08:00; Stop 07/05/16 at 18:07; Status DC Simvastatin (Zocor) 20 mg QHS PO Last administered on 07/04/16 20:31; Start at 21:00; Stop 07/05/16 at 18:07; Status DC Non-Formulary Medication 2 puff PRN Q4-6HRS PRN INH SHORTNESS OF BREATH; Start 07/01/16 at 20:30; Stop 07/01/16 at 20:33; Status DC Gabapentin (Neurontin) 600 mg TID PO Last administered on 07/02/16 08:23; Start 07/01/16 at 21:00; Stop 07/02/16 at 13:21; Status DC Insulin Aspart (Novolog) 50 units TIDWMEALS SQ Last administered on 07/02/16 12 :20; Start 07/02/16 at 07:30; Stop 07/02/16 at 13:29; Status DC Insulin Detemir (Levemir) 110 units QHS SQ Last administered on 07/01/16 21:30 ; Start 07/01/16 at 21:00; Stop 07/02/16 at 13:29; Status DC Metoprolol Tartrate (Lopressor) 100 mg BID PO Last administered on 07/05/16 08: 38; Start 07/01/16 at 21:00; Stop 07/05/16 at 18:07; Status DC Insulin Aspart (Novolog) 0-9 UNITS TIDWMEALS SQ Last administered on 07/02/16 08:42; Start 07/02/16 at 08:00; Stop 07/02/16 at 10:16; Status DC Dextrose (Dextrose 50%-Water Syringe) 12.5 gm PRN Q15MIN PRN IV SEE COMMENTS; Start 07/01/16 at 20:30; Stop 07/05/16 at 18:07; Status DC Morphine Sulfate 2 mg PRN Q2HR PRN IV PAIN; Start 07/01/16 at 20:30; Stop at 18:07; Status DC Albuterol Sulfate (Ventolin Neb Soln) 2.5 mg PRN Q4HRS PRN NEB SHORTNESS OF BREATH; Start 07/01/16 at 20:45; Stop 07/05/16 at 18:07; Status DC Enoxaparin Sodium (Lovenox 40mg Syringe) 40 mg DAILY SQ Last administered on 08:28; Start 07/02/16 at 09:00; Stop 07/02/16 at 16:52; Status DC Gabapentin (Neurontin) 300 mg STK-MED ONCE PO ; Start 07/02/16 at 08:04; Stop 07/02/16 at 08:05; Status DC Insulin Aspart (Novolog) 0-9 UNITS TIDWMEALS SQ Last administered on 07/05/16 12:35; Start 07/02/16 at 12:00; Stop 07/05/16 at 18:07; Status DC Methylprednisolone Acetate (Depo-Medrol 40mg Vial) 40 mg 1X ONCE INJ ; Start at 12:15; Stop 07/02/16 at 12:16; Status DC Bupivacaine HCl (Sensorcaine-Mpf 0.25%) 10 ml 1X ONCE IJ ; Start 07/02/16 at 12: 15; Stop 07/02/16 at 12:16; Status DC Lidocaine (Lidoderm) 1 patch DAILY TD Last administered on 07/05/16 08:37; Start 07/02/16 at 12:30; Stop 07/05/16 at 18:07; Status DC Albuterol/ Ipratropium (Duoneb) 3 ml RTQID NEB Last administered on 07/05/16 15 :13; Start 07/02/16 at 16:00; Stop 07/05/16 at 18:07; Status DC Gabapentin (Neurontin) 600 mg TID PO Last administered on 07/05/16 16:06; Start 07/02/16 at 14:00; Stop 07/05/16 at 18:07; Status DC Cyclobenzaprine HCl (Flexeril) 10 mg PRN Q6HRS PRN PO MUSCLE SPASMS Last administered on 07/04/16 20:31; Start 07/02/16 at 13:30; Stop 07/05/16 at 18:07; Status DC Insulin Detemir (Levemir) 110 units QHS SQ Last administered on 07/04/16 20:45 ; Start 07/02/16 at 13:29; Stop 07/05/16 at 18:07; Status DC Insulin Aspart (Novolog) 50 units TIDWMEALS SQ Last administered on 07/05/16 12 :36; Start 07/02/16 at 13:29; Stop 07/05/16 at 18:07; Status DC Enoxaparin Sodium (Lovenox 60mg Syringe) 60 mg Q12HR SQ Last administered on 08:38; Start 07/02/16 at 21:00; Stop 07/05/16 at 18:07; Status DC Methylprednisolone Acetate (Depo-Medrol 40mg Vial) 40 mg 1X ONCE IM ; Start 07/04/16 at 11:15; Stop 07/04/16 at 11:16; Status DC Bupivacaine HCl (Sensorcaine-Mpf 0.25%) 10 ml 1X ONCE IJ ; Start 07/04/16 at 11: 15; Stop 07/04/16 at 11:16; Status DC Methylprednisolone Acetate (Depo-Medrol 40mg Vial) 40 mg 1X ONCE IM ; Start 07/04/16 at 10:30; Stop 07/04/16 at 10:33; Status DC Bupivacaine HCl (Sensorcaine-Mpf 0.25%) 10 ml 1X ONCE IJ ; Start 07/04/16 at 10: 30; Stop 07/04/16 at 10:33; Status DC Insulin Aspart (Novolog) 15 units 1X ONCE SQ Last administered on 07/04/16 12: 01; Start 07/04/16 at 12:00; Stop 07/04/16 at 12:01; Status DC Furosemide (Lasix) 20 mg 1X ONCE PO Last administered on 07/05/16 10:34; Start 07/05/16 at 10:00; Stop 07/05/16 at 10:01; Status DC Active Scripts Active Lasix (Furosemide) 20 Mg Tablet 1 Tab PO DAILY Cyclobenzaprine Hcl 10 Mg Tablet 10 Mg PO PRN Q6HRS PRN Hydrocodone-Apap 5-325 (Hydrocodone Bit/Acetaminophen) 1 Each Tablet 1 Tab PO PRN Q6HRS PRN Reported Proair Hfa Inhaler (Albuterol Sulfate) 8.5 Gm Hfa.aer.ad 2 Puff INH PRN Q4-6HRS PRN Levemir (Insulin Detemir) 100 Unit/1 Ml Vial 110 Unit SQ QHS Novolog (Insulin Aspart) 100 Unit/1 Ml Cartridge 50 Unit SQ TIDAC Aspirin 81 Mg Tab.chew 1 Tab PO DAILY Hydrochlorothiazide Tablet (Hydrochlorothiazide) 25 Mg Tablet 1 Tab PO DAILY Simvastatin 20 Mg Tablet 1 Tab PO QHS Lisinopril 20 Mg Tablet 1 Tab PO BID Naproxen 500 Mg Tablet 1 Tab PO BID Metoprolol Tartrate 100 Mg Tablet 1 Tab PO BID Metformin Hcl 1,000 Mg Tablet 1 Tab PO BID Gabapentin 600 Mg Tablet 600 Mg PO TID Vitals/I & O Vital Sign - Last 24 Hours 07/04/16 07/04/16 07/04/16 07/04/16 19:00 20:00 20:31 20:33 Temp 98.8 98.8 Pulse 77 77 77 Resp 16 B/P 123/65 123/65 123/65 Pulse Ox 94 O2 Delivery Nasal Cannula Nasal Cannula O2 Flow Rate 2.0 2.0 07/04/16 07/04/16 07/05/16 07/05/16 21:39 23:02 03:00 07:00 Temp 99.0 98.7 97.6 99.0 98.7 97.6 Pulse 70 68 73 Resp B/P 116/62 126/69 137/65 Pulse Ox 96 96 96 O2 Delivery Nasal Cannula Nasal Cannula Nasal Cannula Room Air O2 Flow Rate 2.0 2.0 2.0 07/05/16 07/05/16 07/05/16 07/05/16 08:08 08:15 08:38 08:39 Pulse 73 73 B/P 137/65 137/65 Pulse Ox 97 O2 Delivery Nasal Cannula Nasal Cannula O2 Flow Rate 2.0 2.0 07/05/16 07/05/16 07/05/16 07/05/16 11:23 11:34 14:54 15:14 Temp 98.8 97.3 98.8 97.3 Pulse 72 71 Resp B/P 135/59 124/65 Pulse Ox 96 97 O2 Delivery Nasal Cannula Nasal Cannula Nasal Cannula Nasal Cannula O2 Flow Rate 2.0 2.0 2.0 2.0 Intake and Output 07/04/16 07/04/16 07/05/16 15:00 23:00 07:00 Intake Total 240 ml 615 ml Balance 240 ml 615 ml RADHA SALTER MD Jul 05, 2016 18:31
== END 2016-07-05 18:07 | disposition home health service (06) | DRG 551 ==
LOC: ER 12:29 → 5 SOUTH 15:15
PROVIDERS: ADMIT Internal Medicine; ATTEND Internal Medicine
PROC: 3E0U33Z Introduction of Anti-inflammatory into Joints, Percutaneous Approach (ICD-10-PCS; principal; 2016-07-04)
PROC: 3E0U3BZ Introduction of Anesthetic Agent into Joints, Percutaneous Approach (ICD-10-PCS; 2016-07-04)
DX: M47.9 Spondylosis, unspecified (principal); J96.01 Acute respiratory failure with hypoxia; Z68.43 Body mass index [BMI] 50.0-59.9, adult; E66.2 Morbid (severe) obesity with alveolar hypoventilation; J45.901 Unspecified asthma with (acute) exacerbation; M62.830 Muscle spasm of back; J44.9 Chronic obstructive pulmonary disease, unspecified; E11.42 Type 2 diabetes mellitus with diabetic polyneuropathy; E11.65 Type 2 diabetes mellitus with hyperglycemia; I11.9 Hypertensive heart disease without heart failure; K59.00 Constipation, unspecified; M19.90 Unspecified osteoarthritis, unspecified site; S33.5XXA Sprain of ligaments of lumbar spine, initial encounter; Z83.3 Family history of diabetes mellitus; Z87.891 Personal history of nicotine dependence; Z90.49 Acquired absence of other specified parts of digestive tract
CPT/HCPCS: 36415; 71010; 72148; 80048; 80053; 81001; 82553; 82947; 83036; 83605; 83880; 84484; 85007; 85027; 87040; 87804; 93005; 94250; 94620; 94640; 94760; 96361; 96374; 96375; 96376; J1650; J1815; J2405; J2920; J3010; J7030; J7620; 97116; 99285-25

== ENCOUNTER 2018-07-03 14:54 | Emergency (ER) | payer MEDICARE, OTHER ==
[~2018-07-03] VITALS: Ht 157.5 cm; Wt 126.1 kg
[~2018-07-03 14:54] MED LIST: ALBU2.5V8 INH; ASPI-630 PO; CYCL10TA2 PO; DOXY100T PO; FURO-69 PO; GABA600T7 PO; GUAI600T47 PO; HYDR-2145 PO; HYDR-2761 PO; INSU100C4 SQ; INSU100V13 SQ; LISI-334 PO; METF10007 PO; METO100T7 PO; NAPR-514 PO; PRED20TA PO; SIMV20TA3 PO
[2018-07-03 15:17] VITALS: BP 139/64
--- NOTE | 2018-07-03 15:53 | RAD ---
EXAM: Left knee, 3 views. HISTORY: Pain. COMPARISON: None. FINDINGS: 3 views left knee are obtained. There is medial compartment joint space narrowing with degenerative subchondral sclerosis and marginal spurring. There is mild lateral compartment and patellar spurring. There is no significant joint effusion. There are soft tissue calcifications throughout the lower leg. IMPRESSION: 1. Mild medial compartment predominant osteoarthritis of the left knee. 2. No acute osseous finding. Electronically signed by: Rosanna Car MD (07/03/2018 3:49 PM) [facility]
--- NOTE | 2018-07-03 16:15 | PHYS DOC ---
Past Medical History Past Medical History: Diabetes-Type II, Hypertension, Other Additional Past Medical Histor: "rapid heartrate" Past Surgical History: Cholecystectomy, , Other Additional Past Surgical Histo: R hand frx repair Alcohol Use: Rarely Drug Use: None Adult General Chief Complaint Chief Complaint: LOWER EXT PAIN HPI HPI 68-year-old female presents to ER with complaints of left knee pain which is been ongoing for over a month. Patient's son is at bedside translating as patient speaks minimal Maltese. She reports patient was evaluated in clinic approximately one month ago and had ultrasound done as well as x-rays but never received a phone call from the doctor and never went in for discussion on those results. Patient denies any new injury or falls. Patient states pain is similar when she was evaluated at the doctor's office 1 month ago. She reports she uses a walker at home otherwise uses a cane when out for errands. Patient reports she has bilateral lower extremity swelling which she denies any acute change since appointments with her doctor last month. He reports she was prescribed a pain medicine at that time uncertain of the name but states when she does take the medicine her pain is improved. She reports she has had injections in her knee previously. She denies any acute change in her symptoms she reports with ongoing pain she chose to come to the ER to get the problem fixed. Review of Systems Review of Systems Constitutional: Denies fever or chills [] Respiratory: Denies cough or shortness of breath [] Cardiovascular: No additional information not addressed in HPI [] Musculoskeletal: Denies back pain. Reports lt knee pain/swelling Integument: Denies rash or skin lesions [] Neurologic: Denies headache, focal weakness or sensory changes [] Endocrine: Denies polyuria or polydipsia [] All other systems were reviewed and found to be within normal limits, except as documented in this note. Allergies Allergies Allergies Coded Allergies Type Severity Reaction Last Updated Verified No Known Drug Allergies 07/01/16 No Physical Exam Physical Exam Constitutional: Well developed, well nourished, no acute distress, non-toxic appearance. [] HENT: Normocephalic, atraumatic, oropharynx moist Eyes: Pupils equal, conjunctiva normal, no discharge. [] Neck: Normal range of motion, supple Cardiovascular:Heart rate regular Lungs & Thorax: Resp. equal/nonlabored Skin: Warm, dry, no erythema, no rash. Extremities: No cyanosis, no clubbing, 1+ bilat pedal edema with pt reporting NL no acute change. Rt LE NL exam with ROM intact. Lt anterior knee tenderness with swelling at joint- no warmth/erythema- no palp. deformity/mass. 2+ dorsalis pedis/posterior tibial bilat. ROM in lt knee decreased with pt reporting increased pain with movement. Bilat. calf size symmetric- no calf tenderness. Neurologic: Alert and oriented X 3, normal motor function, normal sensory function, no focal deficits noted. [] Psychologic: Affect normal, judgement normal, mood normal. [] Current Patient Data Vital Signs Vital Signs Date Time Temp Pulse Resp B/P (MAP) Pulse Ox O2 Delivery O2 Flow Rate FiO2 07/03/18 15:17 98.0 95 20 139/64 (89) Room Air 98.0 EKG EKG [] Radiology/Procedures Radiology/Procedures []PROCEDURE: KNEE LEFT 3V EXAM: Left knee, 3 views. HISTORY: Pain. COMPARISON: None. FINDINGS: 3 views left knee are obtained. There is medial compartment joint space narrowing with degenerative subchondral sclerosis and marginal spurring. There is mild lateral compartment and patellar spurring. There is no significant joint effusion. There are soft tissue calcifications throughout the lower leg. IMPRESSION: 1. Mild medial compartment predominant osteoarthritis of the left knee. 2. No acute osseous finding. Electronically signed by: Rosanna Car MD (07/03/2018 3:49 PM) [facility] DICTATED and SIGNED BY: ROSANNA CAR MD DATE: 07/03/18 1549 Course & Med Decision Making Course & Med Decision Making Pertinent Imaging studies reviewed. (See chart for details) Pt was evaluated in the ER for c/o ongoing lt knee pain which she reports is similar to when she was evaluated by her doctor approx. 1 mo ago and had imaging /US done. She denied any acute changes or injury since that eval. She had xray obtained while in the ER with arthritic/degenerative findings no acute findings noted. This result was provided to pt and her son and discussion had with pt regarding ongoing pain and need for f/u with orthopedic doctor. Discussed RICE acronym and will have prem wrap applied to lt knee. Discussed use of walker as pt is using cane. Pt reports she does have walker at home but doesn't care to use it. Advised on use of OTC pain med. PRN. Will provide referral info on d/c paperwork for orthop. doctor. Education provided on s&s to return to ER for and d/c instructions discussed. Following prem wrap application by RN pt remains PMS intact lt LE- reporting with wrap on her pain has improved while ambulating. Dragon Disclaimer Dragon Disclaimer This electronic medical record was generated, in whole or in part, using a voice recognition dictation system. Departure Departure Impression: Primary Impression: Knee pain, left Disposition: HOME, SELF-CARE Condition: STABLE Referrals: NO PCP (PCP) CHAMP CARTER II, MD Patient Instructions: Knee Pain, Knee Wraps (Elastic Bandage) and RICE, Walker Use Additional Instructions: Wear prem wrap on left knee while walking and use your walker. Continue the medications you have been using for pain control as directed on container as needed for pain. Follow-up with the clinic you had imaging an ultrasound done last month and obtain those records. Follow-up with orthopedic doctor for reevaluation and further care. JOHN BARRY PATCH SETTER Jul 03, 2018 16:15
== END 2018-07-03 16:27 | disposition home or self-care (01) ==
LOC: ER 14:54
DX: M25.562 Pain in left knee (principal); R22.43 Localized swelling, mass and lump, lower limb, bilateral; E11.9 Type 2 diabetes mellitus without complications; I10 Essential (primary) hypertension
CPT/HCPCS: 73562; 99283